=== PATIENT | female | born 1980 | race Caucasian/White ===

== ENCOUNTER 2019-05-19 18:28 | Inpatient (IN) | payer OTHER ==
[2019-05-19 19:16] VITALS: BMI 15.6
--- NOTE | 2019-05-19 20:35 | HP ---
COWS - Scale Resting Pulse: 1= [place] 81-100 Sweatin=Flushed/Facial Moisture Restless Observation: 1= Difficult to Sit Still Pupil Size: 0= Normal to Room Light Bone or Joint Aches: 0= None Runny Nose/ Eye Tearin= Nasal Congestion GI Upset > 30mins: 2= Nausea/Diarrhea Tremor Observation: 0= None Yawning Observation: 0= None Anxiety or Irritability: 2=Irritable/Anxious Goose Flesh Skin: 0=Smooth Skin COWS Score: 9 CIWA Score Nausea/Vomitin-Mild Nausea/No Vomiting Muscle Tremors: None Anxiety: 1-Mildly Anxious Agitation: 1-Slight > Activity Paroxysmal Sweats: 3 Orientation: 0-Oriented Tacttile Disturbances: 0-None (see black like tad poles) Auditory Disturbances: 0-None Visual Disturbances: 3-Moderate Sensitivity Headache: 3-Moderate CIWA-Ar Total Score: 12 - Admission Criteria OASAS Guidelines: Admission for Medically Managed Detox: Requires at least one of the followin. CIWA greater than 12 2. Seizures within the past 24 hours 3. Delirium tremens within the past 24 hours 4. Hallucinations within the past 24 hours 5. Acute intervention needed for co occurring medical disorder 6. Acute intervention needed for co occurring psychiatric disorder 7. Severe withdrawal that cannot be handled at a lower level of care (continued vomiting, continued diarrhea, abnormal vital signs) requiring intravenous medication and/or fluids 8. Admission [facility] Chief Complaint: C/O WITHDRAWAL SX'S Allergies/Adverse Reactions: Allergies Allergy/AdvReac Type Severity Reaction Status Date / Time No Known Allergies Allergy Verified 05/19/19 19:06 History of Present Illness: 39 Y.O. FEMALE WITH OPIOID AND ALCOHOL DEPENDENCE HERE FOR DETOX. SHE ALSO REPORTS CANNABIS AND COCAINE ABUSE. STATES SHE IN ON RX XANAX. LAST DETOX ABOUT 10 DAYS AGO AT [facility] WHERE SHE SIGNED OUT AFTER A DAY OR SO. 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 SHE REPORTS DAILY SUBSTANCE ABUSE LAST USE EARLIER TODAY DUE TO WITHDRAWAL SX'S. DENIES ANY CLEAN TIME IN THE PAST YEAR. DENIES HX/O SZ, DT'S, SI/HI/AVH +IVDU, +DRUG OVERDOSE. DOMICILED, UNEMPLOYED, DENIES LEGALS Exam Limitations: No Limitations - Ebola screening Have you traveled outside of the country in the last 21 days: No (N) Have you had contact with anyone from an Ebola affected area: No Do you have a fever: No - Review of Systems Constitutional: Chills, Loss of Appetite, Night Sweats, Changes in sleep, Unintentional Wgt. Loss EENT: reports: Dental Problems (NPOOR DENTITION) Respiratory: reports: Shortness of Breath Cardiac: reports: No Symptoms Reported GI: reports: Nausea, Poor Appetite, Poor Fluid Intake, Abdominal cramping : reports: No Symptoms Reported Musculoskeletal: reports: Back Pain Integumentary: reports: Flushing, Other (RIGHT HAND ABRASION) Neuro: reports: Headache Endocrine: reports: No Symptoms Reported Hematology: reports: No Symptoms Reported Psychiatric: reports: Orientated x3, Agitated, Anxious, Depressed (DENIES SI) Other Systems: Reviewed and Negative Patient History - Patient Medical History Hx Anemia: No Hx Asthma: No Hx Chronic Obstructive Pulmonary Disease (COPD): No Hx Cancer: No Hx Cardiac Disorders: No Hx Congestive Heart Failure: No Hx Hypertension: No Hx Hypercholesterolemia: No Hx Pacemaker: No HX Cerebrovascular Accident: No Hx Seizures: No Hx Dementia: No Hx Diabetes: No Hx Gastrointestinal Disorders: No Hx Liver Disease: No Hx Genitourinary Disorders: No Hx Sexually Transmitted Disorders: No Hx Renal Disease (ESRD): No Hx Thyroid Disease: No Hx Human Immunodeficiency Virus (HIV): No Hx Hepatitis C: No Hx Depression: Yes Hx Suicide Attempt: No Hx Bipolar Disorder: No Hx Schizophrenia: No Other Medical History: ANXIETY, INSOMNIA - Patient Surgical History Past Surgical History: No - PPD History Previous Implant?: Yes Documented Results: Negative w/o proof Implanted On Prior R Admission?: No PPD to be Administered?: Yes - Reproductive History Patient is a Female of Child Bearing Age (11 -55 yrs old): Yes LMP comment: "ITS BEEN A LONG TIME" ON CONTROL-IMPLANT TO LUE Patient : No ([facility] [place]) - Smoking Cessation Smoking history: Current every day smoker Have you smoked in the past 12 months: Yes Aproximately how many cigarettes per day: 6 Cigars Per Day: 0 Hx Chewing Tobacco Use: No Initiated information on smoking cessation: Yes 'Breaking Loose' booklet given: 05/19/19 - Substance & Tx. History Hx Alcohol Use: Yes Hx Substance Use: Yes Substance Use Type: Alcohol, Cocaine, Heroin, Marijuana, Opiates, Prescribed ( XANAX) Hx Substance Use Treatment: Yes ([facility]) - Substances abused Heroin Substance route: Injection Frequency: Daily Amount used: 5 to 10 bags Age of first use: 29 Date of last use: 05/19/19 Alcohol Substance route: Oral Frequency: Daily Amount used: 3 beers/ couple shots of rum and henessey Age of first use: 16 Date of last use: 05/18/19 Cocaine Substance route: Inhalation (AND SMOKE) Frequency: 3-6 times per week Amount used: 2 BAGS Age of first use: 20 Date of last use: 05/18/19 Family Disease History - Family Disease History Family Disease History: Diabetes: Father (ALCOHOLISM, [place]), Other: Father, Mother (HYPOTHYROIDISM) Admission Physical Exam [facility] - Vital Signs Vital Signs: Vital Signs - 24 hr 05/19/19 19:09 Temperature 97.9 F Pulse Rate 83 Respiratory 16 Rate Blood Pressure 106/77 - Physical General Appearance: Yes: Mild Distress, Cachetic, Irritable HEENTM: Yes: EOMI, Normocephalic, Normal Voice, EDIL, Pharynx Normal, Nasal Congestion Respiratory: Yes: Chest Non-Tender, Lungs Clear, Normal Breath Sounds, No Respiratory Distress, No Accessory Muscle Use Neck: Yes: No masses,lesions,Nodules, Supple, Trachea in good position Breast: Yes: Breast Exam Deferred Cardiology: Yes: Regular Rhythm, Regular Rate, S1, S2 Abdominal: Yes: Normal Bowel Sounds, Non Tender, Flat, Soft Genitourinary: Yes: Within Normal Limits Back: Yes: Normal Inspection Musculoskeletal: Yes: full range of Motion, Gait Steady Extremities: Yes: Normal Capillary Refill, Normal Range of Motion, Non-Tender, 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 (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) 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: Yes: Fully Oriented, Alert, Motor Strength 5/5, Depressed Affect Integumentary: Yes: Cold, Other (PILORECTION R HAND MIDDLE KNUCKLE WITH HEALING ABRASION WITH SOME RED BORDERS NOT HOT TO TOUCH-BACITRACIN) Lymphatic: Yes: Within Normal Limits - Diagnostic (1) Alcohol dependence with uncomplicated withdrawal Current Visit: Yes Status: Acute (2) Opioid dependence with withdrawal Current Visit: Yes Status: Acute (3) Cocaine abuse, uncomplicated Current Visit: Yes Status: Acute (4) Sedative, hypnotic or anxiolytic dependence, uncomplicated Current Visit: Yes Status: Acute (5) IVDU (intravenous drug user) Current Visit: Yes Status: Acute (6) At risk for dehydration due to poor fluid intake Current Visit: Yes Status: Acute (7) Depressed affect Current Visit: Yes Status: Acute Cleared for Admission S - Detox or Rehab [facility] Level of Care: Medically Managed Detox Regimen/Protocol: Methadone/Valium Claeared for Rehab Admission: No Breathalyzer - Breathalyzer Breathalyzer: 0 Urine Drug Screen - Test Device Lot number: [id number] Expiration date: 02/10/21 - Control Is test valid?: Yes - Results Drug screen NEGATIVE: No Urine drug screen results: THC-Marijuana, MANGO-Cocaine, FEN-Fentanyl, MOP-Opiates , OXY-Oxycodone, MTD-Methadone, BZO-Benzodiazepines Inpatient Rehab Admission - Rehab Decision to Admit Inpatient rehab admission?: No
[2019-05-19] MEDS ORDERED: MENTHOL/PHENOL 1 EACH UD MM PRN (20:44)
[2019-05-19] MEDS ORDERED: guaiFENesin 200 MG/10 ML 10 ML UNIT-DOSE CUPS PO PRN (20:44)
[2019-05-19] MEDS ORDERED: hydrOXYzine PAMOATE 25 MG CAPSULE (FP) PO PRN (20:44)
[2019-05-19] MEDS ORDERED: PROCHLORPERAZINE MALEATE 5 MG TABLET PO PRN (20:44)
[2019-05-19] MEDS ORDERED: P-EPHED 60MG/TRIPROLIDI 2.5MG TABLET PO PRN (20:44)
[2019-05-19] MEDS ORDERED: cloNIDine HCL 0.1 MG TABLET PO PRN ×2 (20:44→23:38)
[2019-05-19] MEDS ORDERED: METHOCARBAMOL 500 MG TABLET PO PRN (20:44)
[2019-05-19] MEDS ORDERED: BISMUTH SUBSALICYLATE 524 MG/30 ML UD PO PRN (20:44)
[2019-05-19] MEDS ORDERED: NICOTINE POLACRILEX 2 MG GUM BUC PRN (20:44)
[2019-05-19] MEDS ORDERED: MAG HYDROX/AL HYDROX/SIMETH 30 ML UNIT-DOSE CUP PO PRN (20:44)
[2019-05-19] MEDS ORDERED: IBUPROFEN 400 MG TABLET (FP) PO PRN (20:44)
[2019-05-19] MEDS ORDERED: MELATONIN 5 MG TABLETS PO PRN (20:44)
[2019-05-19] MEDS ORDERED: ONDANSETRON *ODT* 4 MG TABLET SL PRN (20:44)
[2019-05-19] MEDS ORDERED: METHADONE HCL 10 MG TABLET (FOR DETOX USE ONLY) PO ONE ×2 (20:44→23:38)
[2019-05-19] MEDS ORDERED: ACETAMINOPHEN 325 MG TABLET (FP) PO PRN ×2 (20:44)
[2019-05-19] MEDS ORDERED: MAGNESIUM HYDROX 2400MG/30ML ORAL SUSPENSION 30 ML CUP PO PRN (20:44)
[2019-05-19] MEDS ORDERED: diazePAM 5 MG TABLET PO PRN (20:44)
[2019-05-19] MEDS ORDERED: MAGNESIUM CITRATE 300 ML BOTTLE PO PRN (20:44)
[2019-05-19] MEDS ORDERED: BACITRACIN 15 GM TUBE TOPICAL OINTMENT TP SCH ×2 (21:30→21:31)
[2019-05-19] MEDS ORDERED: diazePAM 5 MG TABLET PO SCH (22:00)
[2019-05-19] MEDS: THIAMINE HCL 100 MG TABLET (FP) PO SCH (23:34)
[2019-05-19] MEDS ORDERED: NALOXONE HCL 0.4 MG/ML VIAL IM PRN (23:38)
[2019-05-19] MEDS: diazePAM 5 MG TABLET PO SCH (23:49)
[2019-05-20] MEDS: diazePAM 5 MG TABLET PO SCH ×3 (06:42→22:37)
[2019-05-20] MEDS ORDERED: METHADONE HCL 5 MG TABLET (FOR DETOX USE ONLY) ONE (09:33)
[2019-05-20] MEDS ORDERED: METHADONE HCL 10 MG TABLET (FOR DETOX USE ONLY) ONE (09:33)
[2019-05-20] MEDS ORDERED: METHADONE (DETOX) 20 MG, METHADONE (DETOX) 5 MG PO ONE ×2 (10:00)
[2019-05-20] MEDS ORDERED: PRENATAL VITAMINS W/ FOLIC ACID TABLET (FP) PO SCH (10:00)
[2019-05-20] MEDS ORDERED: NICOTINE 14 MG/24 HOURS TOPICAL PATCH TD SCH (10:00)
--- NOTE | 2019-05-20 11:17 | CONSULT ---
[facility] Psychiatric Consult - Data Date of interview: 05/20/19 Admission source: Outreach Identifying data: Ms Gant is a 39 years old single female, mother of a 9 years old daughter, unemployed with no source of income, living with a friend seeking detox treatment for alcohol, opioid and cocaine Substance Abuse History: Reports history of alcohol, opioid and cocaine use. Refer to addiction counselor's summary for further information Medical History: Unremarkable. Smokes 6 cigarettes daily Psychiatric History: Reports that her first psychiatric contact was in 2011 when she saw a private psychiatrist in the [place] for feeling anxious and depressed. She claims that she was diagnosed with Anxiety and started on Buspar , Alprazolam and Ambien. Reports that she has continued to receive outpatient psychiatric treatment since. Reports that she currently sees Dr Chatman, a private psychiatrist on [facility] in the [place] and she is prescribed Xanax 2 mg/tid, Zoloft 25 mg/day, and Ambien 10 mg/hs. Denies previous psychiatric hospitalization or suicidal attempt. At present, reports feeling anxious and sleeping poorly Physical/Sexual Abuse/Trauma History: Denies emotional, physical or sexual abuse as well as DV relationship. No service Additional Comment: Reports history of 2 previous arrests. Claims that she is currently facing a felony conviction Mental Status Exam - Mental Status Exam Alert and Oriented to: Time, Place, Person Cognitive Function: Fair Patient Appearance: Well Groomed Mood: Anxious Affect: Appropriate Patient Behavior: Cooperative Speech Pattern: Clear Voice Loudness: Normal Thought Process: Intact, Goal Oriented Hallucinations: Denies Suicidal Ideation: Denies Homicidal Ideation: Denies Insight/Judgement: Poor Sleep: Poorly Appetite: Poor Muscle strength/Tone: Normal Gait/Station: Normal Psychiatric Findings - Problem List ([place] 1, 2,3) (1) Anxiety disorder Current Visit: Yes Status: Chronic (2) Substance-induced anxiety disorder Current Visit: Yes Status: Acute (3) Substance-induced sleep disorder Current Visit: Yes Status: Acute (4) Alcohol dependence with uncomplicated withdrawal Current Visit: Yes Status: Acute (5) Opioid dependence with withdrawal Current Visit: Yes Status: Acute (6) Cocaine dependence, uncomplicated Current Visit: Yes Status: Acute (7) Nicotine dependence Current Visit: Yes Status: Acute - Initial Treatment Plan Initial Treatment Plan: 1) Continue Zoloft 25 mg po daily. 2) Start Belsonmra 10 mg po HS prn for insomnia. 3) Continue inpatient detoxification
[2019-05-20 11:20] LABS: ALBUMIN 3.1 g/dl (3.4-5.0); BILIRUBIN,TOTAL 0.6 mg/dL (0.2-1); BLOOD UREA NITROGEN 10.6 mg/dL (7-18); CALCIUM 8.7 mg/dL (8.5-10.1); CREATININE 0.8 mg/dL (0.55-1.3); TOT PROT 5.5 g/dl (6.4-8.2)
[2019-05-20] MEDS ORDERED: SERTRALINE HCL 25 MG TABLET (FP) PO SCH (11:30)
--- NOTE | 2019-05-20 11:34 | PN ---
[facility] CIWA - CIWA Score Nausea/Vomitin-Mild Nausea/No Vomiting Muscle Tremors: 3 Anxiety: 3 Agitation: 3 Paroxysmal Sweats: 3 Orientation: 0-Oriented Tacttile Disturbances: 0-None Auditory Disturbances: 0-None Visual Disturbances: 0-None Headache: 0-None Present CIWA-Ar Total Score: 13 BHS COWS - Scale Resting Pulse: 0= [place] 80 or Below Sweatin= Chills/Flushing Restless Observation: 1= Difficult to Sit Still Pupil Size: 0= Normal to Room Light Bone or Joint Aches: 2= Severe Diffuse Aches Runny Nose/ Eye Tearin= Runny Nose/Eyes GI Upset > 30mins: 2= Nausea/Diarrhea Tremor Observation of Outstretched Hands: 2= Slight Tremor Visible Yawning Observation: 0= None Anxiety or Irritability: 2=Irritable/Anxious Goose Flesh Skin: 0=Smooth Skin COWS Score: 12 S Progress Note (SOAP) Subjective: sweats shakes interrupted sleep body aches nausea headache anxiety Objective: 05/20/19 11:33 Vital Signs Temperature 97.7 F 05/20/19 10:02 Pulse Rate 68 05/20/19 10:02 Respiratory Rate 20 05/20/19 10:02 Blood Pressure 127/84 05/20/19 10:02 O2 Sat by Pulse Oximetry (%) Laboratory Tests 05/20/19 07:00 Sodium 141 Potassium 4.0 Chloride 107 Carbon Dioxide 31 Anion Gap 3 L BUN 10.6 Creatinine 0.8 Est GFR (CKD-EPI)AfAm 108.39 Est GFR (CKD-EPI)NonAf 93.52 Random Glucose 79 Calcium 8.7 Total Bilirubin 0.6 AST 11 L ALT 19 Alkaline Phosphatase 61 Total Protein 5.5 L Albumin 3.1 L rest of labs pending aaox3 ambulating no acute distress Assessment: 05/20/19 11:33 withdrawal sx Plan: continue detox increase fluids motrin/tylenol prn zofran prn
[2019-05-20 11:53] LABS: HEMOGLOBIN 11.4 GM/dL (10.7-15.3); MCH 30.5 pg (25.7-33.7); MCHC 33.6 g/dl (32.0-36.0); MEAN CELL VOLUME 90.7 fl (80-96); MEAN PLT VOLUME 9.6 fl (7.5-11.1); PLATELET COUNT 290 K/MM3 (134-434); RBC 3.74 M/mm3 (3.60-5.2); RDW 13.8 % (11.6-15.6); WHITE BLOOD COUNT 8.4 K/mm3 (4.0-10.0)
--- NOTE | 2019-05-20 13:34 | EKG ---
Test Reason : Blood Pressure : / mmHG Vent. Rate : 069 BPM Atrial Rate : 069 BPM P-R Int : 100 ms QRS Dur : 086 ms QT Int : 402 ms P-R-T Axes : 025 068 045 degrees QTc Int : 430 ms SINUS RHYTHM WITH SHORT NM OTHERWISE NORMAL ECG NO PREVIOUS ECGS AVAILABLE Confirmed by GARRETT TORRES, YAMILEX ([id number]) on 05/20/2019 1:33:58 PM Referred By: Lionel Massey Confirmed By:YAMILEX TUCKER MD
[2019-05-20 16:06] LABS: EPI CELLS 26.2 /HPF (0-5/HPF); HYALINE CASTS 20 /lpf (0-8); URINE APPEARANCE CLOUDY; URINE BILIRUBIN NEGATIVE (NEGATIVE); URINE COLOR YELLOW; URINE GLUCOSE (UA) NEGATIVE (NEGATIVE); URINE KETONE NEGATIVE (NEGATIVE); URINE LEUK ESTERASE TRACE (NEGATIVE); URINE NITRITE NEGATIVE (NEGATIVE); URINE PROTEIN NEGATIVE (NEGATIVE); URINE RBC 2 /hpf (0-4); URINE WBC 8 /hpf (0-5)
[2019-05-20 16:35] LABS: URINE CRYSTALS CALCIUM OXALATE /hpf
[2019-05-20] MEDS: diazePAM 5 MG TABLET PO PRN (19:06)
[2019-05-20] MEDS ORDERED: SUVOREXANT 10 MG TABLET PO PRN (22:00)
[2019-05-20] MEDS: THIAMINE HCL 100 MG TABLET (FP) PO SCH (22:37)
[2019-05-21] MEDS ORDERED: diazePAM 5 MG TABLET PO SCH ×2 (06:00)
[2019-05-21] MEDS: diazePAM 5 MG TABLET PO PRN (07:51)
[2019-05-21 08:18] VITALS: BP 116/89; PULSE 67; TEMP 97.7
--- NOTE | 2019-05-21 08:47 | PN ---
S Progress Note Note: pt was admitted in withdrawals, pt c/o withdrawals and aggressive symptomatic management however pt in spite of motivational counseling regarding the risk of relapse, seizures, OD, and or loss, pt chose to sign out AMA.
--- NOTE | 2019-05-21 09:31 | DS ---
[facility] Detox Discharge Summary Admission Date: 05/19/19 - History Present History: Alcohol Dependence, Opioid Dependence, Sedative Dependence - Physical Exam Results Vital Signs: Vital Signs Temperature 97.7 F 05/21/19 08:17 Pulse Rate 67 05/21/19 08:17 Respiratory Rate 16 05/21/19 08:17 Blood Pressure 116/89 05/21/19 08:17 O2 Sat by Pulse Oximetry (%) - Treatment Patient has Accepted a Rehab Referral to: pt refused rehab, referral - Medication Discharge Medications: Ambulatory Orders Zolpidem Tartrate [Ambien] 10 mg PO HS 05/19/19 - Diagnosis (1) Alcohol dependence with uncomplicated withdrawal Current Visit: Yes Status: Chronic (2) At risk for dehydration due to poor fluid intake Current Visit: Yes Status: Acute (3) Cocaine dependence, uncomplicated Current Visit: Yes Status: Chronic (4) Depressed affect Current Visit: Yes Status: Acute (5) IVDU (intravenous drug user) Current Visit: Yes Status: Chronic (6) Nicotine dependence Current Visit: Yes Status: Chronic Qualifiers: Nicotine product type: cigarettes Substance use status: uncomplicated Qualified Code(s): F17.210 - Nicotine dependence, cigarettes, uncomplicated (7) Opioid dependence with withdrawal Current Visit: Yes Status: Chronic (8) Sedative, hypnotic or anxiolytic dependence, uncomplicated Current Visit: Yes Status: Chronic (9) Substance-induced anxiety disorder Current Visit: Yes Status: Acute (10) Substance-induced sleep disorder Current Visit: Yes Status: Acute (11) Anxiety disorder Current Visit: Yes Status: Chronic - AMA Did Patient Leave Against Medical Advice: Yes
[2019-05-21] MEDS ORDERED: METHADONE HCL 10 MG TABLET (FOR DETOX USE ONLY) PO ONE ×2 (10:00)
[2019-05-22] MEDS ORDERED: diazePAM 5 MG TABLET PO ONE ×2 (06:00)
[2019-05-22] MEDS ORDERED: METHADONE (DETOX) 10 MG, METHADONE (DETOX) 5 MG PO ONE ×2 (10:00)
[2019-05-23] MEDS ORDERED: METHADONE HCL 10 MG TABLET (FOR DETOX USE ONLY) PO ONE ×2 (10:00)
[2019-05-24] MEDS ORDERED: METHADONE HCL 5 MG TABLET (FOR DETOX USE ONLY) PO ONE ×2 (06:00)
== END 2019-05-21 09:27 | disposition left against medical advice (07) | DRG 770 ==
LOC: YASAS 18:28 → Y6N 21:04
PROVIDERS: ADMIT Surgery; ATTEND Surgery
PROC: HZ2ZZZZ Detoxification Services for Substance Abuse Treatment (ICD-10-PCS; principal; 2019-05-19)
DX: F11.23 Opioid dependence with withdrawal (principal); F10.230 Alcohol dependence with withdrawal, uncomplicated; F13.230 Sedative, hypnotic or anxiolytic dependence with withdrawal, uncomplicated; F14.20 Cocaine dependence, uncomplicated; F17.210 Nicotine dependence, cigarettes, uncomplicated; F32.9 Major depressive disorder, single episode, unspecified; F19.280 Other psychoactive substance dependence with psychoactive substance-induced anxiety disorder; F19.282 Other psychoactive substance dependence with psychoactive substance-induced sleep disorder; F41.9 Anxiety disorder, unspecified; R63.8 Other symptoms and signs concerning food and fluid intake
CPT/HCPCS: 36415; 80053; 81003; 81025; 85027; 86480; 86593; 93005; 93010; J0735

== ENCOUNTER 2019-06-18 17:18 | Inpatient (IN) | payer OTHER ==
[2019-06-18 23:24] VITALS: BMI 16.2
--- NOTE | 2019-06-19 03:44 | HP ---
COWS - Scale Resting Pulse: 0= [place] 80 or Below Sweatin=Flushed/Facial Moisture Restless Observation: 0= Sits Still Pupil Size: 1= Pupils >than Normal Bone or Joint Aches: 4=Acute Joint/Muscle Pain Runny Nose/ Eye Tearin= Runny Nose/Eyes GI Upset > 30mins: 3= Vomiting/Diarrhea (vomiting x 1, diarrhea x 1) Tremor Observation: 4= Gross Tremor/Twitching Yawning Observation: 1= 1-2x During Session Anxiety or Irritability: 2=Irritable/Anxious Goose Flesh Skin: 0=Smooth Skin COWS Score: 19 CIWA Score Nausea/Vomitin Muscle Tremors: 3 Anxiety: 3 Agitation: 3 Paroxysmal Sweats: 2 Orientation: 0-Oriented Tacttile Disturbances: 0-None Auditory Disturbances: 0-None Visual Disturbances: 0-None Headache: 0-None Present CIWA-Ar Total Score: 13 - Admission Criteria OASAS Guidelines: Admission for Medically Managed Detox: Requires at least one of the followin. CIWA greater than 12 2. Seizures within the past 24 hours 3. Delirium tremens within the past 24 hours 4. Hallucinations within the past 24 hours 5. Acute intervention needed for co occurring medical disorder 6. Acute intervention needed for co occurring psychiatric disorder 7. Severe withdrawal that cannot be handled at a lower level of care (continued vomiting, continued diarrhea, abnormal vital signs) requiring intravenous medication and/or fluids 8. Admission [facility] Chief Complaint: Seeking admission to detox from Heroin and alcohol Allergies/Adverse Reactions: Allergies Allergy/AdvReac Type Severity Reaction Status Date / Time No Known Allergies Allergy Verified 06/18/19 23:15 History of Present Illness: 39 years old female with 10 years of heroin dependence is seeking admission to detox from heroin and alcohol. Patient has been in previous detox and reports 3 years of sobriety. She denies past medical history and denies suicidal suicidal ideation at this time Exam Limitations: No Limitations - Ebola screening Have you traveled outside of the country in the last 21 days: No (N) Have you had contact with anyone from an Ebola affected area: No Do you have a fever: No - Review of Systems Constitutional: Chills, Malaise, Night Sweats, Changes in sleep EENT: reports: Nose Congestion Respiratory: reports: No Symptoms reported Cardiac: reports: No Symptoms Reported GI: reports: Diarrhea, Poor Appetite, Poor Fluid Intake, Vomiting, Abdominal cramping : reports: No Symptoms Reported Musculoskeletal: reports: Back Pain, Joint Pain, Muscle Pain Integumentary: reports: Dryness, Flushing Neuro: reports: Tremors Endocrine: reports: No Symptoms Reported Hematology: reports: No Symptoms Reported Psychiatric: reports: Mood/Affect Appropiate, Anxious Other Systems: Reviewed and Negative Patient History - Patient Medical History Hx Anemia: No Hx Asthma: No Hx Chronic Obstructive Pulmonary Disease (COPD): No Hx Cancer: No Hx Cardiac Disorders: No Hx Congestive Heart Failure: No Hx Hypertension: No Hx Hypercholesterolemia: No Hx Pacemaker: No HX Cerebrovascular Accident: No Hx Seizures: No Hx Dementia: No Hx Diabetes: No Hx Gastrointestinal Disorders: No Hx Liver Disease: No Hx Genitourinary Disorders: No Hx Sexually Transmitted Disorders: No Hx Renal Disease (ESRD): No Hx Thyroid Disease: No Hx Human Immunodeficiency Virus (HIV): No Hx Hepatitis C: No Hx Depression: Yes (Alprazolam) Hx Suicide Attempt: No Hx Bipolar Disorder: No Hx Schizophrenia: No - Patient Surgical History Past Surgical History: No Hx Neurologic Surgery: No Hx Cataract Extraction: No Hx Cardiac Surgery: No Hx Lung Surgery: No Hx Breast Surgery: No Hx Breast Biopsy: No Hx Abdominal Surgery: No Hx Appendectomy: No Hx Cholecystectomy: No Hx Genitourinary Surgery: No Hx Section: No Hx Orthopedic Surgery: No Anesthesia Reaction: No - PPD History Previous Implant?: Yes Documented Results: Negative w/o proof Implanted On Prior [facility] Admission?: Yes PPD to be Administered?: Yes - Reproductive History Patient is a Female of Child Bearing Age (11 -55 yrs old): Yes LMP comment: IMPLANT 30 MONTHS AGO - Smoking Cessation Smoking history: Current every day smoker Have you smoked in the past 12 months: Yes Aproximately how many cigarettes per day: 10 Cigars Per Day: 0 Hx Chewing Tobacco Use: No Initiated information on smoking cessation: Yes 'Breaking Loose' booklet given: 06/19/19 - Substance & Tx. History Hx Alcohol Use: No Hx Substance Use: Yes Substance Use Type: Cocaine, Heroin, Marijuana, Opiates Hx Substance Use Treatment: Yes ([facility]) - Substances abused Heroin Substance route: Injection Frequency: Daily Amount used: 6 to 10 bags Age of first use: 29 Date of last use: 06/18/19 Alcohol Substance route: Oral Frequency: Daily Amount used: 5 dollar bottle of liqour/ 2 beers Age of first use: 16 Date of last use: 06/18/19 Cocaine Substance route: Inhalation Frequency: 3-6 times per week Amount used: 2 BAGS Age of first use: 20 Date of last use: 06/17/19 Family Disease History - Family Disease History Family Disease History: Diabetes: Father (ALCOHOLISM, [place]), Other: Father, Mother (HYPOTHYROIDISM) Admission Physical Exam [facility] - Vital Signs Vital Signs: Vital Signs - 24 hr 06/18/19 06/19/19 23:14 01:48 Temperature 96.7 F L 96.7 F L Pulse Rate 76 76 Respiratory 16 16 Rate Blood Pressure 125/85 125/85 - Physical General Appearance: Yes: Moderate Distress, Tremorous, Sweating Cleared for Admission [facility] - Detox or Rehab [facility] Level of Care: Medically Managed Detox Regimen/Protocol: Methadone/Librium Breathalyzer - Breathalyzer Breathalyzer: 0 Urine Drug Screen - Test Device Lot number: [id number] Expiration date: 02/11/21 - Control Is test valid?: Yes - Results Drug screen NEGATIVE: No Urine drug screen results: THC-Marijuana, MANGO-Cocaine, FEN-Fentanyl, MOP-Opiates , OXY-Oxycodone, BZO-Benzodiazepines Inpatient Rehab Admission - Rehab Decision to Admit Inpatient rehab admission?: No
[2019-06-19] MEDS ORDERED: NICOTINE POLACRILEX 2 MG GUM BUC PRN (04:01)
[2019-06-19] MEDS ORDERED: ACETAMINOPHEN 325 MG TABLET (FP) PO PRN ×2 (04:01)
[2019-06-19] MEDS ORDERED: chlordiazePOXIDE HCL 10 MG CAPSULE PO PRN (04:01)
[2019-06-19] MEDS ORDERED: MENTHOL/PHENOL 1 EACH UD MM PRN (04:01)
[2019-06-19] MEDS ORDERED: METHOCARBAMOL 500 MG TABLET PO PRN (04:01)
[2019-06-19] MEDS ORDERED: MELATONIN 5 MG TABLETS PO PRN (04:01)
[2019-06-19] MEDS ORDERED: cloNIDine HCL 0.1 MG TABLET PO PRN (04:01)
[2019-06-19] MEDS ORDERED: BISMUTH SUBSALICYLATE 524 MG/30 ML UD PO PRN (04:01)
[2019-06-19] MEDS ORDERED: METHADONE HCL 10 MG TABLET (FOR DETOX USE ONLY) PO ONE (04:01)
[2019-06-19] MEDS ORDERED: MAG HYDROX/AL HYDROX/SIMETH 30 ML UNIT-DOSE CUP PO PRN (04:01)
[2019-06-19] MEDS ORDERED: MAGNESIUM HYDROX 2400MG/30ML ORAL SUSPENSION 30 ML CUP PO PRN (04:01)
[2019-06-19] MEDS ORDERED: MAGNESIUM CITRATE 300 ML BOTTLE PO PRN (04:01)
[2019-06-19] MEDS ORDERED: IBUPROFEN 400 MG TABLET (FP) PO PRN (04:01)
[2019-06-19] MEDS: chlordiazePOXIDE HCL 25 MG CAPSULE PO SCH ×2 (04:30→13:04)
[2019-06-19] MEDS: PRENATAL VITAMINS W/ FOLIC ACID TABLET (FP) PO SCH (10:12)
[2019-06-19] MEDS: NICOTINE 14 MG/24 HOURS TOPICAL PATCH TD SCH (10:12)
--- NOTE | 2019-06-19 11:55 | EKG ---
Test Reason : Blood Pressure : / mmHG Vent. Rate : 065 BPM Atrial Rate : 065 BPM P-R Int : 102 ms QRS Dur : 076 ms QT Int : 396 ms P-R-T Axes : -18 068 054 degrees QTc Int : 411 ms SINUS RHYTHM WITH SHORT [place] WHEN COMPARED WITH ECG OF 19-MAY-2019 21:12, NO SIGNIFICANT CHANGE WAS FOUND Confirmed by HI ESTRADA MD ([id number]) on 06/19/2019 11:55:20 AM Referred By: Confirmed By:HI ESTRADA MD
--- NOTE | 2019-06-19 14:05 | PN ---
[facility] CIWA - CIWA Score Nausea/Vomitin Muscle Tremors: 2 Anxiety: 3 Agitation: 3 Paroxysmal Sweats: 1-Minimal Palms Moist Orientation: 0-Oriented Tacttile Disturbances: 1-Very Mild Itch/Numbness Auditory Disturbances: 0-None Visual Disturbances: 1-Very Mild Sensitivity Headache: 2-Mild CIWA-Ar Total Score: 15 BHS COWS - Scale Resting Pulse: 0= [place] 80 or Below Sweatin= Chills/Flushing Restless Observation: 1= Difficult to Sit Still Pupil Size: 1= Pupils >than Normal Bone or Joint Aches: 2= Severe Diffuse Aches Runny Nose/ Eye Tearin= Nasal Congestion GI Upset > 30mins: 2= Nausea/Diarrhea Tremor Observation of Outstretched Hands: 1= Tremor [place], Not Seen Yawning Observation: 1= 1-2x During Session Anxiety or Irritability: 2=Irritable/Anxious Goose Flesh Skin: 0=Smooth Skin COWS Score: 12 S Progress Note (SOAP) Subjective: alert,irritable,anxious,interrupted sleep,tremor,painin the body and back Objective: 06/19/19 14:03 Vital Signs Temperature 98.4 F 06/19/19 09:14 Pulse Rate 72 06/19/19 09:14 Respiratory Rate 18 06/19/19 09:14 Blood Pressure 136/90 06/19/19 09:14 O2 Sat by Pulse Oximetry (%) Assessment: 06/19/19 14:04 withdrawaL SYMPTOM Plan: continue detox regimen changed from methadone and librium to methadone and valium
[2019-06-19] MEDS: diazePAM 5 MG TABLET PO SCH ×2 (14:27→21:50)
[2019-06-19] MEDS: hydrOXYzine PAMOATE 25 MG CAPSULE (FP) PO PRN ×2 (14:27→22:31)
--- NOTE | 2019-06-19 16:50 | CONSULT ---
[facility] Psychiatric Consult - Data Date of interview: 06/19/19 Admission source: [facility] Identifying data: Readmission to [facility] for this 39 y/o female self -referred for detoxification (heroin, cannabis, cocaine/crack). Interviewed at [address] [place] [address]. Patient is single, a mother of one, domiciled, unemployed and deprived of any source of income. Substance Abuse History: Discussed with the patient in this session. [facility] report appreciated. Details as follows : Smoking history: Current every day smoker. Have you smoked in the past 12 months: Yes. Aproximately how many cigarettes per day: 10. Cigars Per Day: 0. Hx Chewing Tobacco Use: No. Initiated information on smoking cessation: Yes. 'Breaking Loose' booklet given: . - Substance & Tx. History. Hx Alcohol Use: No. Hx Substance Use: Yes. Substance Use Type: Cocaine, Heroin, Marijuana, Opiates. Hx Substance Use Treatment: Yes ([facility]). - Substances abused. Heroin. Substance route: Injection. Frequency: Daily. Amount used: 6 to 10 bags. Age of first use: 29. Date of last use: 06/18/19. Alcohol. Substance route: Oral. Frequency : Daily. Amount used: 5 dollar bottle of liqour/ 2 beers. Age of first use: 16. Date of last use: 06/18/19. Cocaine. Substance route: Inhalation. Frequency: 3-6 times per week. Amount used: 2 BAGS. Age of first use: 20. Date of last use: 06/17/19 Medical History: Patient denies medical problems. Psychiatric History: Patient has shaheed diagnosed with MDD + Anxiety Disorder since 2011 (by a private psychiatrist). No prior history of psychiatric hospitalizations. Ms Wang is currently under the care of Dr Chatman, a private psychiatrist in the [place]. She is prescribed a regimen of buspar, sertraline, alprazolam and zolpidem. Patient denies history of suicide attempts. Physical/Sexual Abuse/Trauma History: Patient denies history of abuse. Additional Comment: Urine drug screen results: THC-Marijuana, MANGO-Cocaine, FEN- Fentanyl, MOP-Opiates, OXY-Oxycodone, BZO-Benzodiazepines. Noted. Mental Status Exam - Mental Status Exam Alert and Oriented to: Time, Place, Person Cognitive Function: Good Patient Appearance: Well Groomed (thin frame, smalll stature) Mood: Withdrawn, Hopeful Affect: Appropriate, Normal Range Patient Behavior: Fatigued, Appropriate, Cooperative Speech Pattern: Clear, Appropriate Voice Loudness: Normal Thought Process: Intact, Goal Oriented Thought Disorder: Not Present Hallucinations: Denies Suicidal Ideation: Denies Homicidal Ideation: Denies Insight/Judgement: Poor Sleep: Well Appetite: Fair Gait/Station: Normal Psychiatric Findings - Problem List ([place] 1, 2,3) (1) Opioid dependence with withdrawal Current Visit: Yes Status: Acute (2) Sedative, hypnotic or anxiolytic dependence, uncomplicated Current Visit: Yes Status: Acute (3) Cannabis dependence Current Visit: Yes Status: Chronic (4) Cocaine dependence, uncomplicated Current Visit: Yes Status: Chronic (5) Nicotine dependence Current Visit: Yes Status: Chronic Qualifiers: Nicotine product type: cigarettes Substance use status: uncomplicated Qualified Code(s): F17.210 - Nicotine dependence, cigarettes, uncomplicated (6) Substance induced mood disorder Current Visit: Yes Status: Chronic (7) Anxiety disorder Current Visit: Yes Status: Chronic Comment: By history. (8) History of depression Current Visit: Yes Status: Chronic - Initial Treatment Plan Initial Treatment Plan: Psychoeducation. Sleep hygiene. Detoxification. NA meetings. Zoloft 50 mg po daily. Side effects/benefits discussed with patient. Ms Wang agrees to this plan of care. Gave verbal consent to MD. Valderrama.
[2019-06-19] MEDS: diazePAM 5 MG TABLET PO PRN ×2 (17:30→21:31)
[2019-06-19] MEDS ORDERED: THIAMINE HCL 100 MG TABLET (FP) PO SCH (22:00)
[2019-06-20] MEDS: diazePAM 5 MG TABLET PO PRN ×3 (01:29→11:52)
[2019-06-20] MEDS ORDERED: chlordiazePOXIDE 5 MG CAPSULE PO SCH (05:00)
[2019-06-20] MEDS: diazePAM 5 MG TABLET PO SCH (05:41)
[2019-06-20] MEDS ORDERED: METHADONE HCL 5 MG TABLET (FOR DETOX USE ONLY) ONE (08:53)
[2019-06-20] MEDS ORDERED: METHADONE HCL 10 MG TABLET (FOR DETOX USE ONLY) ONE (08:53)
[2019-06-20 09:40] VITALS: BP 108/73; PULSE 85; TEMP 97.3
[2019-06-20] MEDS ORDERED: METHADONE (DETOX) 20 MG, METHADONE (DETOX) 5 MG PO ONE (10:00)
[2019-06-20] MEDS ORDERED: SERTRALINE HCL 50 MG TABLET (FP) PO SCH (10:00)
[2019-06-20 10:25] LABS: HEMATOCRIT 42.5 % (32.4-45.2); HEMOGLOBIN 14.2 GM/dL (10.7-15.3); MCH 29.9 pg (25.7-33.7); MCHC 33.5 g/dl (32.0-36.0); MEAN CELL VOLUME 89.3 fl (80-96); MEAN PLT VOLUME 9.5 fl (7.5-11.1); PLATELET COUNT 396 K/MM3 (134-434); RBC 4.76 M/mm3 (3.60-5.2); RDW 14.3 % (11.6-15.6); WHITE BLOOD COUNT 8.8 K/mm3 (4.0-10.0)
[2019-06-20 10:28] LABS: ALBUMIN 4.2 g/dl (3.4-5.0); BILIRUBIN,TOTAL 0.6 mg/dL (0.2-1); BLOOD UREA NITROGEN 18.4 mg/dL (7-18); CALCIUM 10.4 mg/dL (8.5-10.1); CREATININE 0.8 mg/dL (0.55-1.3); POTASSIUM 4.5 mmol/L (3.5-5.1); TOT PROT 7.9 g/dl (6.4-8.2)
[2019-06-20] MEDS: PRENATAL VITAMINS W/ FOLIC ACID TABLET (FP) PO SCH (10:32)
[2019-06-20] MEDS: NICOTINE 14 MG/24 HOURS TOPICAL PATCH TD SCH (10:32)
--- NOTE | 2019-06-20 17:46 | DS ---
[facility] Detox Discharge Summary Admission Date: 06/19/19 Discharge Date: 06/20/19 - History Present History: Alcohol Dependence, Cannabis Dependence, Cocaine Dependence, Opioid Dependence Additional Comments: DESPITE EFFORTS BY PUPIL PERSONNEL WORKER AND BY NURSING STAFF TO ADDRESS PATIENT'S MEDICAL NEEDS / CONCERNS, PATIENT DOES NOT WISH TO REMAIN TO COMPLETE DETOX REGIMEN. RISKS OF LEAVING DETOX UNIT AGAINST MEDICAL ADVICE AND PRIOR TO COMPLETION OF DETOX REGIMEN EXPLAINED TO PATIENT. PATIENT ADVISED TO GO IMMEDIATELY TO NEAREST ER SHOULD ANY INTOLERABLE WITHDRAWAL / DETOX SYMPTOMS DEVELOP AT ANY TIME. PATIENT VERBALIZED UNDERSTANDING OF ALL INFORMATION / RECOMMENDATIONS PRESENTED TO HIM PRIOR TO DEPARTURE FROM DETOX UNIT. PATIENT LEFT DETOX UNIT IN STABLE MEDICAL CONDITION. Pertinent Past History: Depression, Nicotine Dependence, Anxiety Disorder. - Physical Exam Results Vital Signs: Vital Signs Temperature 97.3 F L 06/20/19 09:39 Pulse Rate 85 06/20/19 09:39 Respiratory Rate 16 06/20/19 09:39 Blood Pressure 108/73 06/20/19 09:39 O2 Sat by Pulse Oximetry (%) Pertinent Admission Physical Exam Findings: WITHDRAWAL SYMPTOMS. Laboratory Tests 06/20/19 06/20/19 06/20/19 08:00 08:00 08:00 WBC 8.8 RBC 4.76 Hgb 14.2 Hct 42.5 D MCV 89.3 MCH 29.9 MCHC 33.5 RDW 14.3 Plt Count 396 D MPV 9.5 Sodium 140 Potassium 4.5 Chloride 106 Carbon Dioxide 28 Anion Gap 6 L BUN 18.4 H Creatinine 0.8 Est GFR (CKD-EPI)AfAm 108.39 Est GFR (CKD-EPI)NonAf 93.52 Random Glucose 79 Calcium 10.4 H Total Bilirubin 0.6 AST 16 ALT 24 Alkaline Phosphatase 107 Total Protein 7.9 Albumin 4.2 RPR Titer Nonreactive LABS NOTED. - Medication Discharge Medications: Ambulatory Orders Sertraline HCl [Zoloft -] 50 mg PO DAILY 06/18/19 - Diagnosis (1) Opioid dependence with withdrawal Status: Acute (2) Sedative, hypnotic or anxiolytic dependence, uncomplicated Status: Acute (3) Anxiety disorder Status: Chronic Qualifiers: Anxiety disorder type: unspecified anxiety disorder Qualified Code(s): F41.9 - Anxiety disorder, unspecified (4) Cannabis dependence Status: Chronic (5) Cocaine dependence, uncomplicated Status: Chronic (6) History of depression Status: Chronic (7) Nicotine dependence Status: Chronic Qualifiers: Nicotine product type: cigarettes Substance use status: uncomplicated Qualified Code(s): F17.210 - Nicotine dependence, cigarettes, uncomplicated (8) Substance induced mood disorder Status: Chronic - AMA Did Patient Leave Against Medical Advice: Yes (PATIENT DID NOT WISH TO REMAIN TO COMPLETE DETOX REGIMEN.) [facility] CIWA - CIWA Score Nausea/Vomitin Muscle Tremors: None Anxiety: 3 Agitation: 2 Paroxysmal Sweats: 3 Orientation: 0-Oriented Tacttile Disturbances: 1-Very Mild Itch/Numbness Auditory Disturbances: 0-None Visual Disturbances: 0-None Headache: 0-None Present CIWA-Ar Total Score: 12 COWS - Scale Resting Pulse: 0= [place] 80 or Below Sweatin= Chills/Flushing Restless Observation: 1= Difficult to Sit Still Pupil Size: 0= Normal to Room Light Bone or Joint Aches: 2= Severe Diffuse Aches Runny Nose/ Eye Tearin= None GI Upset > 30mins: 2= Nausea/Diarrhea (vomiting x 1, diarrhea x 1) Tremor Observation: 0= None Yawning Observation: 1= 1-2x During Session Anxiety or Irritability: 2=Irritable/Anxious Goose Flesh Skin: 0=Smooth Skin COWS Score: 9
[2019-06-21] MEDS ORDERED: chlordiazePOXIDE HCL 10 MG CAPSULE PO PRN
[2019-06-21] MEDS ORDERED: chlordiazePOXIDE HCL 10 MG CAPSULE PO SCH (05:00)
[2019-06-21] MEDS ORDERED: diazePAM 5 MG TABLET PO SCH (06:00)
[2019-06-21] MEDS ORDERED: METHADONE HCL 10 MG TABLET (FOR DETOX USE ONLY) PO ONE (10:00)
[2019-06-22] MEDS ORDERED: chlordiazePOXIDE HCL 10 MG CAPSULE PO ONE (05:00)
[2019-06-22] MEDS ORDERED: diazePAM 5 MG TABLET PO ONE (06:00)
[2019-06-22] MEDS ORDERED: METHADONE (DETOX) 10 MG, METHADONE (DETOX) 5 MG PO ONE (10:00)
[2019-06-23] MEDS ORDERED: METHADONE HCL 10 MG TABLET (FOR DETOX USE ONLY) PO ONE (10:00)
[2019-06-24] MEDS ORDERED: METHADONE HCL 5 MG TABLET (FOR DETOX USE ONLY) PO ONE (06:00)
== END 2019-06-20 12:56 | disposition left against medical advice (07) | DRG 770 ==
LOC: YASAS 17:18 → Y3N 06-19 03:46
PROVIDERS: ADMIT Surgery; ATTEND Surgery
PROC: HZ2ZZZZ Detoxification Services for Substance Abuse Treatment (ICD-10-PCS; principal; 2019-06-19)
DX: F11.23 Opioid dependence with withdrawal (principal); F13.230 Sedative, hypnotic or anxiolytic dependence with withdrawal, uncomplicated; F14.20 Cocaine dependence, uncomplicated; F12.20 Cannabis dependence, uncomplicated; F17.210 Nicotine dependence, cigarettes, uncomplicated; F19.24 Other psychoactive substance dependence with psychoactive substance-induced mood disorder; F41.9 Anxiety disorder, unspecified
CPT/HCPCS: 36415; 80053; 85027; 86593; 93005; 93010; J0735

== ENCOUNTER 2019-10-05 13:15 | Inpatient (IN) | payer OTHER ==
[2019-10-05 14:58] VITALS: BMI 16.8
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
--- NOTE | 2019-10-05 15:49 | HP ---
COWS - Scale Resting Pulse: 1= [place] 81-100 Sweatin= Chills/Flushing Restless Observation: 1= Difficult to Sit Still Pupil Size: 2= Moderately Dilated Bone or Joint Aches: 1= Mild Discomfort Runny Nose/ Eye Tearin= Nasal Congestion GI Upset > 30mins: 0= None Tremor Observation: 1= Tremor [place], Not Seen Yawning Observation: 0= None Anxiety or Irritability: 1=Feels Anxious/Irritable Goose Flesh Skin: 0=Smooth Skin COWS Score: 9 CIWA Score Nausea/Vomitin-No Nausea/No Vomiting Muscle Tremors: 1-None Visible, but [place] Anxiety: 2 Agitation: 1-Slight > Activity Paroxysmal Sweats: 1-Minimal Palms Moist Orientation: 0-Oriented Tacttile Disturbances: 0-None Auditory Disturbances: 0-None Visual Disturbances: 0-None Headache: 1-Very Mild CIWA-Ar Total Score: 6 - Admission Criteria OASAS Guidelines: Admission for Medically Managed Detox: Requires at least one of the followin. CIWA greater than 12 2. Seizures within the past 24 hours 3. Delirium tremens within the past 24 hours 4. Hallucinations within the past 24 hours 5. Acute intervention needed for co occurring medical disorder 6. Acute intervention needed for co occurring psychiatric disorder 7. Severe withdrawal that cannot be handled at a lower level of care (continued vomiting, continued diarrhea, abnormal vital signs) requiring intravenous medication and/or fluids 8. Admitting History and Physical - Smoking History Smoking history: Current every day smoker Have you smoked in the past 12 months: Yes Aproximately how many cigarettes per day: 10 - Alcohol/Substance Use Hx Alcohol Use: No Admission [facility] Allergies/Adverse Reactions: Allergies Allergy/AdvReac Type Severity Reaction Status Date / Time No Known Allergies Allergy Verified 10/05/19 14:50 - Ebola screening Have you traveled outside of the country in the last 21 days: No Have you had contact with anyone from an Ebola affected area: No Do you have a fever: No Patient History - Patient Medical History Hx Anemia: No Hx Asthma: No Hx Chronic Obstructive Pulmonary Disease (COPD): No Hx Cancer: No Hx Cardiac Disorders: No Hx Congestive Heart Failure: No Hx Hypertension: No Hx Hypercholesterolemia: No Hx Pacemaker: No HX Cerebrovascular Accident: No Hx Seizures: No Hx Dementia: No Hx Diabetes: No Hx Gastrointestinal Disorders: No Hx Liver Disease: No Hx Genitourinary Disorders: No Hx Sexually Transmitted Disorders: No Hx Renal Disease (ESRD): No Hx Thyroid Disease: No Hx Human Immunodeficiency Virus (HIV): No Hx Hepatitis C: No Hx Depression: Yes (Alprazolam) Hx Suicide Attempt: No Hx Bipolar Disorder: No Hx Schizophrenia: No - Patient Surgical History Past Surgical History: No Hx Neurologic Surgery: No Hx Cataract Extraction: No Hx Cardiac Surgery: No Hx Lung Surgery: No Hx Breast Surgery: No Hx Breast Biopsy: No Hx Abdominal Surgery: No Hx Appendectomy: No Hx Cholecystectomy: No Hx Genitourinary Surgery: No Hx Section: No Hx Orthopedic Surgery: No Anesthesia Reaction: No - Smoking Cessation Smoking history: Current every day smoker Have you smoked in the past 12 months: Yes Aproximately how many cigarettes per day: 10 Cigars Per Day: 0 Hx Chewing Tobacco Use: No - Substances abused Heroin Substance route: Injection Frequency: Daily Amount used: 10 bags Age of first use: 27 Date of last use: 10/05/19 Alcohol Substance route: Oral Frequency: Daily Amount used: 2-3 12oz beers/day Age of first use: 17 Date of last use: 10/04/19 Cocaine Substance route: Inhalation Frequency: 3-6 times per week Amount used: 2 BAGS Age of first use: 20 Date of last use: 06/17/19 Crack Substance route: Injection Frequency: Daily Amount used: 10 bags Age of first use: 31 Date of last use: 10/05/19 Admission Physical Exam [facility] - Vital Signs Vital Signs: Vital Signs - 24 hr 10/05/19 14:53 Temperature 98.2 F Pulse Rate 96 H Respiratory 18 Rate Blood Pressure 131/85 Breathalyzer - Breathalyzer Breathalyzer: 0 Urine Drug Screen - Test Device Lot number: [id number] Expiration date: 05/13/21 - Control Is test valid?: Yes - Results Drug screen NEGATIVE: No Urine drug screen results: THC-Marijuana, MANGO-Cocaine, FEN-Fentanyl, MOP-Opiates , BZO-Benzodiazepines
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
[2019-10-05] MEDS ORDERED: IBUPROFEN 400 MG TABLET (FP) PO PRN (17:03)
[2019-10-05] MEDS ORDERED: NALOXONE HCL 0.4 MG/ML VIAL IM PRN (17:03)
[2019-10-05] MEDS ORDERED: MAGNESIUM HYDROX 2400MG/30ML ORAL SUSPENSION 30 ML CUP PO PRN (17:03)
[2019-10-05] MEDS ORDERED: MENTHOL/PHENOL 1 EACH UD MM PRN (17:03)
[2019-10-05] MEDS ORDERED: MAGNESIUM CITRATE 300 ML BOTTLE PO PRN (17:03)
[2019-10-05] MEDS ORDERED: MAG HYDROX/AL HYDROX/SIMETH 30 ML UNIT-DOSE CUP PO PRN (17:03)
[2019-10-05] MEDS ORDERED: METHOCARBAMOL 500 MG TABLET PO PRN (17:03)
[2019-10-05] MEDS ORDERED: MELATONIN 5 MG TABLETS PO PRN (17:03)
[2019-10-05] MEDS ORDERED: hydrOXYzine PAMOATE 25 MG CAPSULE (FP) PO PRN (17:03)
[2019-10-05] MEDS ORDERED: BISMUTH SUBSALICYLATE 524 MG/30 ML UD PO PRN (17:03)
[2019-10-05] MEDS ORDERED: cloNIDine HCL 0.1 MG TABLET PO PRN (17:03)
[2019-10-05] MEDS ORDERED: ACETAMINOPHEN 325 MG TABLET (FP) PO PRN ×2 (17:03)
[2019-10-05] MEDS ORDERED: METHADONE HCL 10 MG TABLET (FOR DETOX USE ONLY) PO ONE (17:30)
[2019-10-05] MEDS ORDERED: NICOTINE 21 MG/24 HOURS TOPICAL PATCH TD SCH (18:00)
[2019-10-05] MEDS: clonazePAM 0.5 MG TABLET PO PRN (18:06)
[2019-10-05] MEDS ORDERED: THIAMINE HCL 100 MG TABLET (FP) PO SCH (22:00)
[2019-10-06] MEDS: clonazePAM 0.5 MG TABLET PO PRN ×2 (01:18→07:31)
[2019-10-06 06:29] VITALS: BP 90/52; PULSE 72; TEMP 97.7
--- NOTE | 2019-10-06 08:29 | PN ---
[facility] Progress Note Note: pt came up to the nurses station to state she wants to leave. Pt states she wants to go home to [place] and be with family. Pt was advised to stay to complete detox and give detox a chance she could be at risk of relapse, seizure , OD, and or loss, pt chose to sign out AMA.
[2019-10-06] MEDS ORDERED: METHADONE (DETOX) 20 MG, METHADONE (DETOX) 5 MG PO ONE (10:00)
[2019-10-06] MEDS ORDERED: PRENATAL VITAMINS W/ FOLIC ACID TABLET (FP) PO SCH (10:00)
[2019-10-06 10:23] LABS: HEMATOCRIT 36.1 % (32.4-45.2); HEMOGLOBIN 11.8 GM/dL (10.7-15.3); MCH 30.5 pg (25.7-33.7); MCHC 32.8 g/dl (32.0-36.0); MEAN CELL VOLUME 92.8 fl (80-96); MEAN PLT VOLUME 9.4 fl (7.5-11.1); PLATELET COUNT 131 K/MM3 (134-434); RBC 3.89 M/mm3 (3.60-5.2); RDW 14.7 % (11.6-15.6); WHITE BLOOD COUNT 5.6 K/mm3 (4.0-10.0)
[2019-10-06 11:41] LABS: ALBUMIN 3.2 g/dl (3.4-5.0); BILIRUBIN,TOTAL 0.5 mg/dL (0.2-1); BLOOD UREA NITROGEN 13.5 mg/dL (7-18); CALCIUM 8.7 mg/dL (8.5-10.1); CREATININE 0.6 mg/dL (0.55-1.3); POTASSIUM 4.8 mmol/L (3.5-5.1); TOT PROT 6.3 g/dl (6.4-8.2)
[2019-10-07] MEDS ORDERED: METHADONE HCL 10 MG TABLET (FOR DETOX USE ONLY) PO ONE (10:00)
[2019-10-08] MEDS ORDERED: METHADONE (DETOX) 10 MG, METHADONE (DETOX) 5 MG PO ONE (10:00)
[2019-10-09] MEDS ORDERED: METHADONE HCL 10 MG TABLET (FOR DETOX USE ONLY) PO ONE (10:00)
[2019-10-10] MEDS ORDERED: METHADONE HCL 5 MG TABLET (FOR DETOX USE ONLY) PO ONE (06:00)
== END 2019-10-06 08:52 | disposition left against medical advice (07) | DRG 770 ==
LOC: YASAS 13:15 → Y6N 17:22
PROVIDERS: ADMIT Allergy & Immunology; ATTEND Allergy & Immunology
PROC: HZ2ZZZZ Detoxification Services for Substance Abuse Treatment (ICD-10-PCS; principal; 2019-10-05)
DX: F14.20 Cocaine dependence, uncomplicated (principal); F17.210 Nicotine dependence, cigarettes, uncomplicated; F19.280 Other psychoactive substance dependence with psychoactive substance-induced anxiety disorder
CPT/HCPCS: 36415; 80053; 81025; 85027; 86593

== ENCOUNTER 2019-11-28 23:49 | Inpatient (IN) | payer OTHER ==
--- NOTE | 2019-11-29 00:35 | HP ---
COWS - Scale Resting Pulse: 2= OR 101-120 Sweatin=Flushed/Facial Moisture Restless Observation: 1= Difficult to Sit Still Pupil Size: 1= Pupils >than Normal Bone or Joint Aches: 2= Severe Diffuse Aches Runny Nose/ Eye Tearin= Nasal Congestion GI Upset > 30mins: 2= Nausea/Diarrhea Tremor Observation: 2= Slight Tremor Visible Yawning Observation: 0= None Anxiety or Irritability: 1=Feels Anxious/Irritable Goose Flesh Skin: 0=Smooth Skin COWS Score: 14 CIWA Score - Admission Criteria OASAS Guidelines: Admission for Medically Managed Detox: Requires at least one of the followin. CIWA greater than 12 2. Seizures within the past 24 hours 3. Delirium tremens within the past 24 hours 4. Hallucinations within the past 24 hours 5. Acute intervention needed for co occurring medical disorder 6. Acute intervention needed for co occurring psychiatric disorder 7. Severe withdrawal that cannot be handled at a lower level of care (continued vomiting, continued diarrhea, abnormal vital signs) requiring intravenous medication and/or fluids 8. Admitting History and Physical - Past Medical History Psych: Yes: Addictions - Past Surgical History Past Surgical History: Yes: None - Smoking History Smoking history: Current every day smoker Have you smoked in the past 12 months: Yes Aproximately how many cigarettes per day: 10 - Alcohol/Substance Use Hx Alcohol Use: No Admission ROS S - HPI Chief Complaint: DEPENDENT ON HEROIN, CRACK AND MARIJUANA Allergies/Adverse Reactions: Allergies Allergy/AdvReac Type Severity Reaction Status Date / Time No Known Allergies Allergy Verified 10/05/19 14:50 History of Present Illness: THE PT. IS REQUESTING ADMISSION TO THE DETOX UNIT AND CAME FOR H AND PE Exam Limitations: No Limitations - Ebola screening Have you traveled outside of the country in the last 21 days: No Have you had contact with anyone from an Ebola affected area: No Have you been sick,other than usual withdrawal symptoms: No Do you have a fever: No - Review of Systems Constitutional: See HPI, Loss of Appetite, Malaise, Unintentional Wgt. Loss EENT: reports: See HPI Respiratory: reports: See HPI Cardiac: reports: See HPI GI: reports: See HPI, Nausea, Poor Appetite, Abdominal cramping : reports: No Symptoms Reported, See HPI Musculoskeletal: reports: See HPI, Muscle Pain, Muscle Weakness Integumentary: reports: See HPI, Flushing Neuro: reports: See HPI, Headache, Tremors, Weakness Endocrine: reports: See HPI Hematology: reports: See HPI Psychiatric: reports: Judgement Intact, Orientated x3, Anxious, Depressed Patient History - Patient Medical History Hx Anemia: No Hx Asthma: No Hx Chronic Obstructive Pulmonary Disease (COPD): No Hx Cancer: No Hx Cardiac Disorders: No Hx Congestive Heart Failure: No Hx Hypertension: No Hx Hypercholesterolemia: No Hx Pacemaker: No HX Cerebrovascular Accident: No Hx Seizures: No Hx Dementia: No Hx Diabetes: No Hx Gastrointestinal Disorders: No Hx Liver Disease: No Hx Genitourinary Disorders: No Hx Sexually Transmitted Disorders: No Hx Renal Disease (ESRD): No Hx Thyroid Disease: No Hx Human Immunodeficiency Virus (HIV): No Hx Hepatitis C: Yes (DIAGNOSED 1 WK AGO) Hx Depression: Yes (AND ANIXETY) Hx Suicide Attempt: No Hx Bipolar Disorder: No Hx Schizophrenia: No - Patient Surgical History Past Surgical History: No Hx Neurologic Surgery: No Hx Cataract Extraction: No Hx Cardiac Surgery: No Hx Lung Surgery: No Hx Breast Surgery: No Hx Breast Biopsy: No Hx Abdominal Surgery: No Hx Appendectomy: No Hx Cholecystectomy: No Hx Genitourinary Surgery: No Hx Section: No Hx Orthopedic Surgery: No Anesthesia Reaction: No - Reproductive History Patient is a Female of Child Bearing Age (11 -55 yrs old): Yes LMP comment: 3 YRS. AGO Patient : No - Smoking Cessation Smoking history: Current every day smoker Have you smoked in the past 12 months: Yes Aproximately how many cigarettes per day: 10 Cigars Per Day: 0 Hx Chewing Tobacco Use: No Initiated information on smoking cessation: Yes 'Breaking Loose' booklet given: 11/29/19 - Substance & Tx. History Hx Alcohol Use: No Hx Substance Use: Yes Substance Use Type: Cocaine, Heroin, Marijuana, Prescribed, Tranquilizers Hx Substance Use Treatment: Yes - Substances abused Heroin Substance route: Injection Frequency: Daily Amount used: 10-15b/D Age of first use: 29 Date of last use: 11/28/19 Crack Substance route: Injection Frequency: Daily Amount used: 10-15 B/D Age of first use: 26 Date of last use: 11/28/19 Marijuana/Hashish Substance route: Smoking Frequency: 1-2 times per week Amount used: $10/ONCE A WK Age of first use: 17 Date of last use: 11/27/19 Alprazolam (Xanax) Substance route: Oral Frequency: Daily Amount used: 2 MGS. X 3/D - PRESCRIBED Age of first use: 27 Date of last use: 11/28/19 Admission Physical Exam [facility] - Physical General Appearance: Yes: No Apparent Distress, Appropriately Dressed, Thin, Tremorous, Anxious HEENTM: Yes: Hearing grossly Normal, Normocephalic, Normal Voice, EDIL, Pharynx Normal Respiratory: Yes: Chest Non-Tender, Lungs Clear, Normal Breath Sounds, No Respiratory Distress, No Accessory Muscle Use Neck: Yes: No masses,lesions,Nodules, Supple, Trachea in good position Breast: Yes: Breast Exam Deferred, Axillae without masses Cardiology: Yes: Regular Rhythm, S1, S2, Tachycardia Abdominal: Yes: Normal Bowel Sounds, Non Tender, Flat, Soft Back: Yes: Normal Inspection Musculoskeletal: Yes: full range of Motion, Gait Steady, Pelvis Stable, Muscle Pain, Muscle weakness Extremities: Yes: Normal Capillary Refill, Normal Range of Motion, Non-Tender, Tremors 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: 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: 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, Fully Oriented, Alert, Motor Strength 5/5, Normal Response, Depressed Affect Integumentary: Yes: Normal Color, Warm, Track [place] Lymphatic: Yes: Within Normal Limits - Addiitonal Findings: MULTIPLE NEEDLE TRACKS ON THE EXTREMITIES AND NECK NOTED - Diagnostic (1) Heroin dependence Current Visit: Yes Status: Chronic (2) Hepatitis C Current Visit: Yes Status: Chronic Qualifiers: Viral hepatitis chronicity: unspecified (3) Anxiety and depression Current Visit: Yes Status: Chronic (4) Cannabis dependence Current Visit: No Status: Chronic (5) Cocaine dependence, uncomplicated Current Visit: No Status: Chronic (6) Nicotine dependence Current Visit: No Status: Chronic Qualifiers: Nicotine product type: cigarettes Substance use status: uncomplicated Qualified Code(s): F17.210 - Nicotine dependence, cigarettes, uncomplicated Cleared for Admission [facility] - Detox or Rehab [facility] Level of Care: Medically Supervised Detox Regimen/Protocol: Methadone/Valium Breathalyzer - Breathalyzer Breathalyzer: 0 Urine Drug Screen - Test Device Lot number: [id number] Expiration date: 11/30/21 - Control Is test valid?: Yes - Results Drug screen NEGATIVE: No Urine drug screen results: THC-Marijuana, MANGO-Cocaine, MET-Methamphetamine, FEN- Fentanyl, MOP-Opiates, BZO-Benzodiazepines Inpatient Rehab Admission - Rehab Decision to Admit Inpatient rehab admission?: No
[2019-11-29] MEDS ORDERED: IBUPROFEN 400 MG TABLET (FP) PO PRN (00:47)
[2019-11-29] MEDS ORDERED: MAGNESIUM HYDROX 2400MG/30ML ORAL SUSPENSION 30 ML CUP PO PRN (00:47)
[2019-11-29] MEDS ORDERED: MAGNESIUM CITRATE 300 ML BOTTLE PO PRN (00:47)
[2019-11-29] MEDS ORDERED: NICOTINE POLACRILEX 2 MG GUM BUC PRN (00:47)
[2019-11-29] MEDS ORDERED: MAG HYDROX/AL HYDROX/SIMETH 30 ML UNIT-DOSE CUP PO PRN (00:47)
[2019-11-29] MEDS ORDERED: cloNIDine HCL 0.1 MG TABLET PO PRN (00:47)
[2019-11-29] MEDS ORDERED: ACETAMINOPHEN 325 MG TABLET (FP) PO PRN ×2 (00:47)
[2019-11-29] MEDS ORDERED: BISMUTH SUBSALICYLATE 524 MG/30 ML UD PO PRN (00:47)
[2019-11-29] MEDS ORDERED: MELATONIN 5 MG TABLETS PO PRN (00:47)
[2019-11-29] MEDS ORDERED: MENTHOL/PHENOL 1 EACH UD MM PRN (00:47)
[2019-11-29] MEDS ORDERED: hydrOXYzine PAMOATE 25 MG CAPSULE (FP) PO PRN (00:47)
[2019-11-29] MEDS ORDERED: METHOCARBAMOL 500 MG TABLET PO PRN (00:47)
[2019-11-29] MEDS ORDERED: diazePAM 5 MG TABLET PO ONE (03:15)
[2019-11-29] MEDS ORDERED: METHADONE HCL 10 MG TABLET (FOR DETOX USE ONLY) PO ONE ×2 (03:30→06:00)
[2019-11-29] MEDS: diazePAM 5 MG TABLET PO SCH ×3 (06:25→22:07)
[2019-11-29] MEDS: NICOTINE 14 MG/24 HOURS TOPICAL PATCH TD SCH (10:18)
[2019-11-29] MEDS: PRENATAL VITAMINS W/ FOLIC ACID TABLET (FP) PO SCH (10:18)
--- NOTE | 2019-11-29 12:29 | CONSULT ---
[facility] Psychiatric Consult - Data Date of interview: 11/29/19 Admission source: [facility] Identifying data: Patient is a 39 year old single female, mother of one, unemployed, and currently homeless. This is one of multiple admissions for patient. Patient admitted to for cannabis, cocaine, and sedative dependence. Substance Abuse History: Smoking Cessation. Smoking history: Current every day smoker. Have you smoked in the past 12 months: Yes. Aproximately how many cigarettes per day: 10. Cigars Per Day: 0. Hx Chewing Tobacco Use: No. Initiated information on smoking cessation: Yes. 'Breaking Loose' booklet given : 11/29/19. - Substance & Tx. History. Hx Alcohol Use: No. Hx Substance Use: Yes. Substance Use Type: Cocaine, Heroin, Marijuana, Prescribed, Tranquilizers. Hx Substance Use Treatment: Yes. - Substances abused. Heroin. Substance route: Injection. Frequency: Daily. Amount used: 10-15b/D. Age of first use: 29. Date of last use: 11/28/19. Crack. Substance route : Injection. Frequency: Daily. Amount used: 10-15 B/D. Age of first use: 26. Date of last use: 11/28/19. Marijuana/Hashish. Substance route: Smoking. Frequency: 1-2 times per week. Amount used: $10/ONCE A WK. Age of first use : 17. Date of last use: 11/27/19. Alprazolam (Xanax). Substance route: Oral. Frequency: Daily. Amount used: 2 MGS. X 3/D - PRESCRIBED. Age of first use: 27. Date of last use: 11/28/19 Medical History: Hep C Psychiatric History: Patient denies history of psychiatric hospitalization and suicide attempt. Patient with difficulty remaining awake throughout interview. States that she is currently under the care of Dr. Chatman, a private psychiatrist in the [place] [facility] and is prescribed ambien + xanax. Diagnosis of anxiety disorder. At present patient reports difficulty sleeping last night. Physical/Sexual Abuse/Trauma History: denies. Mental Status Exam - Mental Status Exam Alert and Oriented to: Time, Place, Person Cognitive Function: Good Patient Appearance: Well Groomed Mood: Withdrawn Affect: Mood Congruent Patient Behavior: Sedated, Fatigued Speech Pattern: Delayed Voice Loudness: Mildly Soft/Quiet Thought Process: Goal Oriented Thought Disorder: Not Present Hallucinations: Denies Suicidal Ideation: Denies Homicidal Ideation: Denies Insight/Judgement: Poor Sleep: Poorly Appetite: Fair Muscle strength/Tone: Normal Gait/Station: Normal Psychiatric Findings - Problem List ([place] 1, 2,3) (1) Heroin dependence Status: Chronic (2) Opioid dependence with withdrawal Status: Acute (3) Sedative, hypnotic or anxiolytic dependence, uncomplicated Status: Acute (4) Substance-induced sleep disorder Status: Acute (5) Cannabis dependence Status: Chronic (6) Cocaine dependence, uncomplicated Status: Chronic - Initial Treatment Plan Initial Treatment Plan: Psychoeducation provided. Rehab in progress. Will order Belsomra 5mg HS PRN. Benefits and side effects discussed. Verbal consent given.
--- NOTE | 2019-11-29 14:08 | PN ---
[facility] Progress Note Note: Patient admitted to detox for opiod dependence. ROS: mild nausea, chills, sweating and sleep disturbance PE alert and oriented x 3 skin warm, +facial flushing appears thin, tired resting in bed ext full rom, no visible edema A/P opiod withdrawal sx continue detox
[2019-11-29] MEDS: THIAMINE HCL 100 MG TABLET (FP) PO SCH (22:07)
[2019-11-29] MEDS: SUVOREXANT 5 MG TABLET PO PRN (22:09)
[2019-11-30] MEDS ORDERED: METHADONE HCL 10 MG TABLET (FOR DETOX USE ONLY) ONE (05:04)
[2019-11-30] MEDS ORDERED: METHADONE HCL 5 MG TABLET (FOR DETOX USE ONLY) ONE (05:04)
[2019-11-30] MEDS: diazePAM 5 MG TABLET PO SCH ×2 (05:46→17:48)
[2019-11-30] MEDS ORDERED: METHADONE (DETOX) 20 MG, METHADONE (DETOX) 5 MG PO ONE (06:00)
[2019-11-30 10:16] LABS: ALBUMIN 3.1 g/dl (3.4-5.0); BILIRUBIN,TOTAL 0.4 mg/dL (0.2-1); BLOOD UREA NITROGEN 15.4 mg/dL (7-18); CALCIUM 9.2 mg/dL (8.5-10.1); CREATININE 0.8 mg/dL (0.55-1.3); POTASSIUM 4.4 mmol/L (3.5-5.1); TOT PROT 6.2 g/dl (6.4-8.2)
[2019-11-30 10:23] LABS: HEMOGLOBIN 12.3 GM/dL (10.7-15.3); MCH 30.2 pg (25.7-33.7); MCHC 33.3 g/dl (32.0-36.0); MEAN CELL VOLUME 90.8 fl (80-96); MEAN PLT VOLUME 8.6 fl (7.5-11.1); PLATELET COUNT 337 K/MM3 (134-434); RBC 4.08 M/mm3 (3.60-5.2); RDW 14.3 % (11.6-15.6); WHITE BLOOD COUNT 6.8 K/mm3 (4.0-10.0)
[2019-11-30] MEDS: PRENATAL VITAMINS W/ FOLIC ACID TABLET (FP) PO SCH (10:31)
[2019-11-30] MEDS: NICOTINE 14 MG/24 HOURS TOPICAL PATCH TD SCH (10:31)
--- NOTE | 2019-11-30 14:44 | PN ---
S CIWA - CIWA Score Nausea/Vomitin Muscle Tremors: 2 Anxiety: 2 Agitation: 2 Paroxysmal Sweats: No Perspiration Orientation: 0-Oriented Tacttile Disturbances: 1-Very Mild Itch/Numbness Auditory Disturbances: 0-None Visual Disturbances: 0-None Headache: 1-Very Mild CIWA-Ar Total Score: 10 [facility] COWS - Scale Resting Pulse: 1= [place] 81-100 Sweatin= No chills or Flushing Restless Observation: 1= Difficult to Sit Still Pupil Size: 1= Pupils >than Normal Bone or Joint Aches: 1= Mild Discomfort Runny Nose/ Eye Tearin= Runny Nose/Eyes GI Upset > 30mins: 1= Stomach Cramp Tremor Observation of Outstretched Hands: 2= Slight Tremor Visible Yawning Observation: 1= 1-2x During Session Anxiety or Irritability: 2=Irritable/Anxious Goose Flesh Skin: 0=Smooth Skin COWS Score: 12 S Progress Note (SOAP) Subjective: alert,irritable,anxious,interrupted sleep,pain in the body Objective: 11/30/19 14:43 Vital Signs Temperature 97.9 F 11/30/19 14:37 Pulse Rate 98 H 11/30/19 14:37 Respiratory Rate 18 11/30/19 14:37 Blood Pressure 105/64 11/30/19 14:37 O2 Sat by Pulse Oximetry (%) Laboratory Last Values WBC 6.8 K/mm3 (4.0-10.0) 11/30/19 07:30 RBC 4.08 M/mm3 (3.60-5.2) 11/30/19 07:30 Hgb 12.3 GM/dL (10.7-15.3) 11/30/19 07:30 Hct 37.0 % (32.4-45.2) 11/30/19 07:30 MCV 90.8 fl (80-96) 11/30/19 07:30 MCH 30.2 pg (25.7-33.7) 11/30/19 07:30 MCHC 33.3 g/dl (32.0-36.0) 11/30/19 07:30 RDW 14.3 % (11.6-15.6) 11/30/19 07:30 Plt Count 337 K/MM3 (134-434) D 11/30/19 07:30 MPV 8.6 fl (7.5-11.1) 11/30/19 07:30 Sodium 139 mmol/L (136-145) 11/30/19 07:30 Potassium 4.4 mmol/L (3.5-5.1) 11/30/19 07:30 Chloride 105 mmol/L (98-107) 11/30/19 07:30 Carbon Dioxide 29 mmol/L (21-32) 11/30/19 07:30 Anion Gap 5 MMOL/L (8-16) L 11/30/19 07:30 BUN 15.4 mg/dL (7-18) 11/30/19 07:30 Creatinine 0.8 mg/dL (0.55-1.3) 11/30/19 07:30 Est GFR (CKD-EPI)AfAm 108.39 11/30/19 07:30 Est GFR (CKD-EPI)NonAf 93.52 11/30/19 07:30 Random Glucose 92 mg/dL (74-106) 11/30/19 07:30 Calcium 9.2 mg/dL (8.5-10.1) 11/30/19 07:30 Total Bilirubin 0.4 mg/dL (0.2-1) 11/30/19 07:30 AST 118 U/L (15-37) H 11/30/19 07:30 ALT 160 U/L (13-61) H 11/30/19 07:30 Alkaline Phosphatase 106 U/L (45-117) 11/30/19 07:30 Total Protein 6.2 g/dl (6.4-8.2) L 11/30/19 07:30 Albumin 3.1 g/dl (3.4-5.0) L 11/30/19 07:30 POC Urine HCG, Qual Negative 11/29/19 00:33 RPR Titer Nonreactive (NONREACTIVE) 11/30/19 07:30 Assessment: 11/30/19 14:43 withdrawal symptom Plan: continue detox methadone and valium regimen
[2019-11-30] MEDS ORDERED: NICOTINE 21 MG/24 HOURS TOPICAL PATCH TD SCH (14:45)
[2019-11-30] MEDS: diazePAM 5 MG TABLET PO PRN ×2 (16:00→20:04)
[2019-11-30] MEDS: SUVOREXANT 5 MG TABLET PO PRN (21:33)
[2019-11-30] MEDS: THIAMINE HCL 100 MG TABLET (FP) PO SCH (21:33)
[2019-11-30] MEDS ORDERED: hydrOXYzine PAMOATE 25 MG CAPSULE (FP) PO ONE (22:23)
--- NOTE | 2019-11-30 22:23 | PN ---
[facility] Progress Note Note: Patient states having withdrawal symptoms and none of the medication is helping her. Patient states uses too many opiates and is on prescribed Xanax. Patient took Belsomra and valium and is now requesting to leave AMA. Explained that based on her recent receipt of medications, she will not be able to leave until after 6 am. Vital Signs - 24 hr 11/30/19 11/30/19 11/30/19 00:40 03:42 05:00 Temperature 97.9 F Pulse Rate 52 L Respiratory 18 18 17 Rate Blood Pressure 106/52 L 11/30/19 11/30/19 11/30/19 06:31 09:37 14:37 Temperature 98.1 F 97.9 F Pulse Rate 90 98 H Respiratory 18 18 18 Rate Blood Pressure 108/66 105/64 Plan: Vistaril 75 mg PO now. Patient to lay in bed after medication. Will re-evaluate patient in a.m. if wants to leave. Discussed w/ patient her needs and encouraged to consider a MMTP which may be a better option to treat her opioid use disorder.
[2019-12-01] MEDS ORDERED: METHADONE HCL 10 MG TABLET (FOR DETOX USE ONLY) PO ONE (06:00)
[2019-12-01] MEDS ORDERED: diazePAM 5 MG TABLET PO ONE (06:00)
[2019-12-01 08:08] VITALS: BP 111/60; PULSE 89; TEMP 97.5
[2019-12-01] MEDS ORDERED: NALOXONE (NARCAN) HCL 4 MG/0.1 ML SPRAY NS PRN (09:35)
--- NOTE | 2019-12-01 09:35 | DS ---
[facility] Detox Discharge Summary Admission Date: 11/29/19 Discharge Date: 12/01/19 - History Present History: Opioid Dependence, Sedative Dependence Pertinent Past History: Pt admitted 2 days ago for opioid detox. Pt also uses xanax. Pt states she wants to leave today. d/w pt at [facility] re MAT methadone- pt was in [facility] program last year. I contacted them and they are willing to restart pt on MAT methadone. 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 d/w pt use of narcan as needed. increased Liver enzymes- pt states she has HCV and will f/u with [facility] for treatment pt is cachetic, appears anxious- d/w pt at length about the need to stay for continued treatment Vital Signs - 24 hr 11/30/19 11/30/19 12/01/19 09:37 14:37 00:08 Temperature 98.1 F 97.9 F Pulse Rate 90 98 H Respiratory 18 18 18 Rate Blood Pressure 108/66 105/64 12/01/19 12/01/19 12/01/19 03:37 05:45 06:38 Temperature 97.5 F L Pulse Rate 89 Respiratory 18 16 18 Rate Blood Pressure 111/60 Laboratory Tests 11/29/19 11/30/19 11/30/19 00:33 07:30 07:30 WBC 6.8 RBC 4.08 Hgb 12.3 Hct 37.0 MCV 90.8 MCH 30.2 MCHC 33.3 RDW 14.3 Plt Count 337 D MPV 8.6 Sodium 139 Potassium 4.4 Chloride 105 Carbon Dioxide 29 Anion Gap 5 L BUN 15.4 Creatinine 0.8 Est GFR (CKD-EPI)AfAm 108.39 Est GFR (CKD-EPI)NonAf 93.52 Random Glucose 92 Calcium 9.2 Total Bilirubin 0.4 AST 118 H ALT 160 H Alkaline Phosphatase 106 Total Protein 6.2 L Albumin 3.1 L POC Urine HCG, Qual Negative RPR Titer 11/30/19 07:30 WBC RBC Hgb Hct MCV MCH MCHC RDW Plt Count MPV Sodium Potassium Chloride Carbon Dioxide Anion Gap BUN Creatinine Est GFR (CKD-EPI)AfAm Est GFR (CKD-EPI)NonAf Random Glucose Calcium Total Bilirubin AST ALT Alkaline Phosphatase Total Protein Albumin POC Urine HCG, Qual RPR Titer Nonreactive - Physical Exam Results Vital Signs: Vital Signs Temperature 97.5 F L 12/01/19 05:45 Pulse Rate 89 12/01/19 05:45 Respiratory Rate 18 12/01/19 06:38 Blood Pressure 111/60 12/01/19 05:45 O2 Sat by Pulse Oximetry (%) - Medication Discharge Medications: Ambulatory Orders Sertraline HCl [Zoloft -] 50 mg PO DAILY 06/18/19 Ambien 10 mg PO HS 10/05/19 Xanax 2 mg PO TID 10/05/19 - Diagnosis (1) Opioid dependence with withdrawal Current Visit: Yes Status: Acute (2) Sedative, hypnotic or anxiolytic dependence, uncomplicated Current Visit: Yes Status: Acute (3) Anxiety and depression Current Visit: Yes Status: Chronic (4) Cocaine dependence, uncomplicated Current Visit: Yes Status: Chronic (5) Hepatitis C Current Visit: Yes Status: Chronic Qualifiers: Viral hepatitis chronicity: unspecified (6) IVDU (intravenous drug user) Current Visit: No Status: Chronic - AMA Did Patient Leave Against Medical Advice: Yes
[2019-12-02] MEDS ORDERED: METHADONE (DETOX) 10 MG, METHADONE (DETOX) 5 MG PO ONE (06:00)
[2019-12-03] MEDS ORDERED: METHADONE HCL 10 MG TABLET (FOR DETOX USE ONLY) PO ONE (06:00)
[2019-12-04] MEDS ORDERED: METHADONE HCL 5 MG TABLET (FOR DETOX USE ONLY) PO ONE (06:00)
== END 2019-12-01 09:06 | disposition left against medical advice (07) | DRG 770 ==
LOC: YASAS 23:49 → Y6N 11-29 01:30
PROVIDERS: ADMIT Allergy & Immunology; ATTEND Allergy & Immunology
PROC: HZ2ZZZZ Detoxification Services for Substance Abuse Treatment (ICD-10-PCS; principal; 2019-11-29)
DX: F11.23 Opioid dependence with withdrawal (principal); F13.230 Sedative, hypnotic or anxiolytic dependence with withdrawal, uncomplicated; F14.20 Cocaine dependence, uncomplicated; F12.20 Cannabis dependence, uncomplicated; F17.210 Nicotine dependence, cigarettes, uncomplicated; F41.9 Anxiety disorder, unspecified; F32.9 Major depressive disorder, single episode, unspecified; B18.2 Chronic viral hepatitis C; R00.0 Tachycardia, unspecified
CPT/HCPCS: 36415; 80053; 81025; 85027; 86593

== ENCOUNTER 2020-01-01 13:02 | Inpatient (IN) | payer OTHER ==
--- NOTE | 2020-01-01 13:55 | BHS.RME ---
Substance Use & Tx History - Substance Use History Opiates (Heroin) Substance amount: 1.5-2 bundles Frequency of use: Daily Substance route: Injection (ex: intravenous or skin popping) Date of Last Use: 01/01/20 Cocaine (Crack) Substance amount: $50 Frequency of use: Daily Substance route: Smoking Date of Last Use: 01/01/20 Benzodiazepines Substance amount: Xanax 1mg Frequency of use: Daily Substance route: Oral Date of Last Use: 12/30/19 - Last Treatment Date of last treatment: 11/2019 Treatment type: Substance Use Disorder ([facility]) Where was last treatment: Detox Physical/Psych/Mental Status - Behavior General Behavior: Increased activity (restlessness, agitation) Eye Contact: Normal - Cooperativeness Cooperativeness: Cooperative - Thinking Thought Processes: Tight, Logical, Goal Directed Thought content: Future oriented - Physical Health Problems Is patient presently having any pain?: No Does patient presently have any injuries (include location): No Does patient currently have a fever: No Is patient : No COWS - Scale Resting Pulse: 1= [place] 81-100 Sweatin= Chills/Flushing Restless Observation: 1= Difficult to Sit Still Pupil Size: 1= Pupils >than Normal Bone or Joint Aches: 1= Mild Discomfort Runny Nose/ Eye Tearin= Nasal Congestion GI Upset > 30mins: 1= Stomach Cramp Tremor Observation: 1= Tremor [place], Not Seen Yawning Observation: 1= 1-2x During Session Anxiety or Irritability: 1=Feels Anxious/Irritable Goose Flesh Skin: 0=Smooth Skin (patient is not exhibiting full withdrawals due to her prescribed Xanax at high doses.) COWS Score: 10
[2020-01-01 13:59] VITALS: BMI 17.9
--- NOTE | 2020-01-01 17:52 | HP ---
"COWS - Scale Resting Pulse: 1= [place] 81-100 Sweatin= Chills/Flushing Restless Observation: 5= Unable to Sit Still Pupil Size: 0= Normal to Room Light Bone or Joint Aches: 1= Mild Discomfort Runny Nose/ Eye Tearin= Nasal Congestion GI Upset > 30mins: 2= Nausea/Diarrhea Tremor Observation: 0= None Yawning Observation: 0= None Anxiety or Irritability: 1=Feels Anxious/Irritable Goose Flesh Skin: 0=Smooth Skin (patient is not exhibiting full withdrawals due to her prescribed Xanax at high doses.) COWS Score: 12 CIWA Score - Admission Criteria [facility] Guidelines: Admission for Medically Managed Detox: Requires at least one of the followin. CIWA greater than 12 2. Seizures within the past 24 hours 3. Delirium tremens within the past 24 hours 4. Hallucinations within the past 24 hours 5. Acute intervention needed for co occurring medical disorder 6. Acute intervention needed for co occurring psychiatric disorder 7. Severe withdrawal that cannot be handled at a lower level of care (continued vomiting, continued diarrhea, abnormal vital signs) requiring intravenous medication and/or fluids 8. Admitting History and Physical - Past Medical History Psych: Yes: Addictions - Past Surgical History Past Surgical History: Yes: None - Smoking History Smoking history: Current every day smoker Have you smoked in the past 12 months: Yes Aproximately how many cigarettes per day: 10 - Alcohol/Substance Use Hx Alcohol Use: No Admission [facility] Allergies/Adverse Reactions: Allergies Allergy/AdvReac Type Severity Reaction Status Date / Time No Known Allergies Allergy Verified 01/01/20 18:15 History of Present Illness: This report was requested by: Nithya Allison | Reference #: [id number] Others' Prescriptions Patient Name: Gretel Wang Date: 1980 Address: [address] [place] [address] Sex: Female Rx Written Rx Dispensed Drug Quantity Days Supply Prescriber Name Payment Method Dispenser zolpidem tartrate 10 mg tablet 30 30 Compa, Purificacion (Dnp) Insurance [facility] alprazolam 2 mg tablet 90 30 Compa, Purificacion (Dnp) Insurance [facility] zolpidem tartrate 10 mg tablet 30 30 Compa, Purificacion (Dnp) Insurance [facility] alprazolam 2 mg tablet 90 30 Compa, Purificacion (Dnp) Insurance [facility] alprazolam 2 mg tablet 90 30 Compa, Purificacion (Dnp) Insurance [facility] zolpidem tartrate 10 mg tablet 30 30 Compa, Purificacion (Dnp) Insurance [facility] alprazolam 2 mg tablet 90 30 Compa, Purificacion (Dnp) Insurance [facility] zolpidem tartrate 10 mg tablet 30 30 Compa, Purificacion (Dnp) Insurance [facility] alprazolam 2 mg tablet 90 30 Compa, Purificacion (Dnp) Insurance [facility] zolpidem tartrate 10 mg tablet 30 30 Compa, Purificacion (Dnp) Insurance [facility] alprazolam 2 mg tablet 90 30 Compa, Purificacion (Dnp) Insurance [facility] zolpidem tartrate 10 mg tablet 30 30 Compa, Purificacion (Dnp) Insurance [facility] zolpidem tartrate 10 mg tablet 30 30 Compa, Purificacion (Dnp) Insurance [facility] alprazolam 2 mg tablet 90 30 Compa, Purificacion (Dnp) Insurance [facility] zolpidem tartrate 10 mg tablet 30 30 Compa, Purificacion (Dnp) Insurance [facility] alprazolam 2 mg tablet 90 30 Compa, Purificacion (Dnp) Insurance [facility] alprazolam 2 mg tablet 21 7 Compa, Purificacion (Dnp) Insurance [facility] zolpidem tartrate 10 mg tablet 7 7 Compa, Purificacion (Dnp) Insurance [facility] alprazolam 2 mg tablet 90 30 Compa, Purificacion (Dnp) Insurance [facility] zolpidem tartrate 10 mg tablet 30 30 Compa, Purificacion (Dnp) Insurance [facility] alprazolam 2 mg tablet 90 30 Compa, Purificacion (Dnp) Insurance [facility] zolpidem tartrate 10 mg tablet 30 30 Compa, Purificacion (Dnp) Insurance [facility] zolpidem tartrate 10 mg tablet 30 30 Radha tobal, Purificacion (Dnp) Insurance [facility] alprazolam 2 mg tablet 90 30 Compa, Purificacion (Dnp) Insurance [facility] zolpidem tartrate 10 mg tablet 30 30 Compa, Purificacion (Dnp) Insurance [facility] alprazolam 2 mg tablet 90 30 Compa, Purificacion (Dnp) Insurance [facility] alprazolam 2 mg tablet 90 30 Compa, Purificacion (Dnp) Insurance [facility] zolpidem tartrate 10 mg tablet 30 30 Compa, Purificacion (Dnp) Insurance [facility] * - Drugs marked with an asterisk are compound drugs. If the compound drug is made up of more than one controlled substance, then each controlled substance will be a separate row in the table. pt here requesting detox from heroin and cocaine use , reports 1.5 bundles/day IV in UE/ LE neck , feet , latest used this morning . latest detox at this facility 1 month ago . cocaine - mixed w/ heroin etoh- occasional cannabis - occasional tobacco - 1/2 ppd-1 ppd PMHX : hep C recent dx no tx PSHx : denies lmp - has implant age 10 w/ paternal GM Exam Limitations: No Limitations - Review of Systems Constitutional: No Symptoms Reported EENT: reports: No Symptoms Reported Respiratory: reports: No Symptoms reported Cardiac: reports: No Symptoms Reported GI: reports: See HPI : reports: No Symptoms Reported Musculoskeletal: reports: No Symptoms Reported Integumentary: reports: See HPI Neuro: reports: Seizure (h/o intermittent seizures) Endocrine: reports: No Symptoms Reported Hematology: reports: No Symptoms Reported Psychiatric: reports: Orientated x3 Patient History - Patient Medical History Hx Anemia: No Hx Asthma: No Hx Chronic Obstructive Pulmonary Disease (COPD): No Hx Cancer: No Hx Cardiac Disorders: No Hx Congestive Heart Failure: No Hx Hypertension: No Hx Hypercholesterolemia: No Hx Pacemaker: No HX Cerebrovascular Accident: No Hx Seizures: No Hx Dementia: No Hx Diabetes: No Hx Gastrointestinal Disorders: No Hx Liver Disease: No Hx Genitourinary Disorders: No Hx Sexually Transmitted Disorders: No Hx Renal Disease (ESRD): No Hx Thyroid Disease: No Hx Human Immunodeficiency Virus (HIV): No Hx Hepatitis C: Yes (DIAGNOSED 1 WK AGO) Hx Depression: Yes Hx Suicide Attempt: No Hx Bipolar Disorder: No Hx Schizophrenia: No - Patient Surgical History Past Surgical History: No Hx Neurologic Surgery: No Hx Cataract Extraction: No Hx Cardiac Surgery: No Hx Lung Surgery: No Hx Breast Surgery: No Hx Breast Biopsy: No Hx Abdominal Surgery: No Hx Appendectomy: No Hx Cholecystectomy: No Hx Genitourinary Surgery: No Hx Section: No Hx Orthopedic Surgery: No Anesthesia Reaction: No - Smoking Cessation Smoking history: Current every day smoker Have you smoked in the past 12 months: Yes Aproximately how many cigarettes per day: 10 Cigars Per Day: 0 Hx Chewing Tobacco Use: No Initiated information on smoking cessation: Yes 'Breaking Loose' booklet given: 01/01/20 - Substances abused Heroin Substance route: Injection Frequency: Daily Amount used: 1-1.5 bundes Age of first use: 27 Date of last use: 01/01/20 Crack Substance route: Smoking Frequency: Daily Amount used: $50 Age of first use: 33 Date of last use: 01/01/20 Cocaine Substance route: Injection Frequency: Daily Amount used: $75 Age of first use: 19 Date of last use: 01/01/20 Admission Physical Exam BHS - Vital Signs Vital Signs: Vital Signs - 24 hr 01/01/20 01/01/20 13:56 14:23 Temperature 97.4 F L 97.4 F L Pulse Rate 85 85 Respiratory 18 18 Rate Blood Pressure 102/63 102/63 - Physical General Appearance: Yes: Mild Distress, Thin HEENTM: Yes: EOMI, Hearing grossly Normal, Normocephalic, Normal Voice Respiratory: Yes: Chest Non-Tender, Lungs Clear, Normal Breath Sounds, No Respiratory Distress, No Accessory Muscle Use Neck: Yes: No masses,lesions,Nodules, Trachea in good position Cardiology: Yes: Regular Rhythm, Regular Rate, S1, S2 Abdominal: Yes: Non Tender, Soft, Protuberent Musculoskeletal: Yes: Gait Steady Extremities: Yes: Normal Inspection, Normal Range of Motion, Non-Tender 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: Yes: Fully Oriented, Alert, Motor Strength 5/5 Integumentary: Yes: Warm, Track Ponce (james UE / LE neck) - Diagnostic (1) Opioid dependence with withdrawal Current Visit: Yes Status: Acute (2) Cannabis dependence Current Visit: Yes Status: Chronic (3) Nicotine dependence Current Visit: Yes Status: Chronic Qualifiers: Nicotine product type: cigarettes Breathalyzer - Breathalyzer Breathalyzer: 0 Urine Drug Screen - Test Device Lot number: [id number] Expiration date: 09/12/21 - Control Is test valid?: Yes - Results Drug screen NEGATIVE: No Urine drug screen results: MANGO-Cocaine, FEN-Fentanyl, MOP-Opiates, BZO- Benzodiazepines Inpatient Rehab Admission - Rehab Decision to Admit Inpatient rehab admission?: No"
[2020-01-01] MEDS ORDERED: MAG HYDROX/AL HYDROX/SIMETH 30 ML UNIT-DOSE CUP PO PRN (18:00)
[2020-01-01] MEDS ORDERED: BISMUTH SUBSALICYLATE 524 MG/30 ML UD PO PRN (18:00)
[2020-01-01] MEDS ORDERED: IBUPROFEN 400 MG TABLET (FP) PO PRN (18:00)
[2020-01-01] MEDS ORDERED: ACETAMINOPHEN 325 MG TABLET (FP) PO PRN ×2 (18:00)
[2020-01-01] MEDS ORDERED: MENTHOL/PHENOL 1 EACH UD MM PRN (18:00)
[2020-01-01] MEDS ORDERED: MAGNESIUM CITRATE 300 ML BOTTLE PO PRN (18:00)
[2020-01-01] MEDS ORDERED: MAGNESIUM HYDROX 2400MG/30ML ORAL SUSPENSION 30 ML CUP PO PRN (18:00)
[2020-01-01] MEDS ORDERED: cloNIDine HCL 0.1 MG TABLET PO PRN (18:02)
[2020-01-01] MEDS ORDERED: METHADONE HCL 10 MG TABLET (FOR DETOX USE ONLY) PO ONE (18:02)
[2020-01-01] MEDS ORDERED: diazePAM 5 MG TABLET PO ONE (18:03)
[2020-01-01] MEDS: THIAMINE HCL 100 MG TABLET (FP) PO SCH (22:38)
[2020-01-01] MEDS: diazePAM 5 MG TABLET PO SCH (22:38)
[2020-01-02] MEDS: diazePAM 5 MG TABLET PO SCH ×3 (06:16→21:42)
[2020-01-02 09:37] LABS: HEMATOCRIT 35.3 % (32.4-45.2); HEMOGLOBIN 11.6 GM/dL (10.7-15.3); MCH 29.6 pg (25.7-33.7); MCHC 32.7 g/dl (32.0-36.0); MEAN CELL VOLUME 90.4 fl (80-96); PLATELET COUNT 315 K/MM3 (134-434); RBC 3.91 M/mm3 (3.60-5.2); RDW 14.5 % (11.6-15.6); WHITE BLOOD COUNT 8.5 K/mm3 (4.0-10.0)
[2020-01-02] MEDS ORDERED: METHADONE HCL 10 MG TABLET (FOR DETOX USE ONLY) ONE (09:41)
[2020-01-02] MEDS ORDERED: METHADONE HCL 5 MG TABLET (FOR DETOX USE ONLY) ONE (09:41)
[2020-01-02 09:56] LABS: ALBUMIN 2.8 g/dl (3.4-5.0); BILIRUBIN,TOTAL 0.4 mg/dL (0.2-1); BLOOD UREA NITROGEN 11.8 mg/dL (7-18); CALCIUM 8.2 mg/dL (8.5-10.1); CREATININE 0.7 mg/dL (0.55-1.3); POTASSIUM 4.2 mmol/L (3.5-5.1); TOT PROT 5.8 g/dl (6.4-8.2)
[2020-01-02] MEDS ORDERED: METHADONE (DETOX) 20 MG, METHADONE (DETOX) 5 MG PO ONE (10:00)
[2020-01-02] MEDS: PRENATAL VITAMINS W/ FOLIC ACID TABLET (FP) PO SCH (10:33)
[2020-01-02] MEDS: NICOTINE 14 MG/24 HOURS TOPICAL PATCH TD SCH (10:34)
--- NOTE | 2020-01-02 10:47 | CONSULT ---
[facility] Psychiatric Consult - Data Date of interview: 01/02/20 Admission source: [facility] Identifying data: Revisit to [facility] and admission to [address] [place] [address] for this 39 y/o female self-referred for detoxification treatment. KRISTY issues : heroin, cannabis, cocaine/crack, nicotine. Patient is single, a mother of one, homeless, unemployed and supported on occasional funds from friends + relatives. Substance Abuse History: Discussed with the patient. KRISTY profile as follows : Smoking history: Current every day smoker. Have you smoked in the past 12 months: Yes. Aproximately how many cigarettes per day: 10. Cigars Per Day: 0. Hx Chewing Tobacco Use: No. Initiated information on smoking cessation: Yes. 'Breaking Loose' booklet given: 01/01/20. - Substances abused. Heroin. Substance route: Injection. Frequency: Daily. Amount used: 1-1.5 bundes. Age of first use: 27. Date of last use: 01/01/20. Crack. Substance route: Smoking. Frequency: Daily. Amount used: $50. Age of first use: 33. Date of last use: 01/01/20. Cocaine. Substance route: Injection. Frequency: Daily. Amount used: $75. Age of first use: 19. Date of last use: 01/01/20 Medical History: Medical profile is remarkable for hepatitis C (untreated). Psychiatric History: Patient denies history of psychiatric hospitalizations. Reportedly diagnosed with MDD + Anxiety Disorder (since 2011, by a private psychiatrist). Ms Wnag is still followed by a private psychiatrist, Dr Chatman, in the [place]. She is prescribed sertraline, alprazolam and zolpidem. Patient denies history of suicide attempts. Physical/Sexual Abuse/Trauma History: Patient denies. Additional Comment: Urine drug screen results: MANGO-Cocaine, FEN-Fentanyl, MOP- Opiates, BZO-Benzodiazepines. Noted. Mental Status Exam - Mental Status Exam Alert and Oriented to: Time, Place, Person Cognitive Function: Good Patient Appearance: Well Groomed (petite, frail habitus, small stature) Mood: Withdrawn, Hopeful Affect: Mood Congruent, Constricted Patient Behavior: Fatigued, Appropriate, Cooperative Speech Pattern: Clear, Appropriate Voice Loudness: Normal Thought Process: Intact, Goal Oriented Thought Disorder: Not Present Hallucinations: Denies Suicidal Ideation: Denies Homicidal Ideation: Denies Insight/Judgement: Poor Sleep: Fair Appetite: Fair, Weight loss Gait/Station: Normal Psychiatric Findings - Problem List ([place] 1, 2,3) (1) Opioid dependence with withdrawal Current Visit: Yes Status: Acute (2) Cannabis dependence Current Visit: Yes Status: Chronic (3) Cocaine dependence, uncomplicated Current Visit: Yes Status: Chronic (4) Nicotine dependence Current Visit: Yes Status: Chronic Qualifiers: Nicotine product type: cigarettes (5) Substance induced mood disorder Current Visit: Yes Status: Chronic (6) History of depression Current Visit: Yes Status: Chronic - Initial Treatment Plan Initial Treatment Plan: Psychoeducation. Detoxification. Sleep hygiene. NA meetings. Resumed : zoloft 50 mg po daily. Side effects/benefits are discussed with the patient. Ms Wang is in agreement with this plan of care. Consent (verbal) given to MD. Valderrama.
--- NOTE | 2020-01-02 11:45 | PN ---
[facility] COWS - Scale Resting Pulse: 0= [place] 80 or Below Sweatin= Beads of Sweat on Face Restless Observation: 1= Difficult to Sit Still Pupil Size: 0= Normal to Room Light Bone or Joint Aches: 2= Severe Diffuse Aches Runny Nose/ Eye Tearin= None GI Upset > 30mins: 0= None Tremor Observation of Outstretched Hands: 0= None Yawning Observation: 1= 1-2x During Session Anxiety or Irritability: 2=Irritable/Anxious Goose Flesh Skin: 0=Smooth Skin COWS Score: 9 S Progress Note (SOAP) Subjective: c/o sweats, anxiety, irritability, and muscle aches. Objective: 01/02/20 11:44 Vital Signs 01/02/20 01/02/20 01/02/20 03:50 06:39 08:43 Temperature 97.7 F 96 F L Pulse Rate 77 76 Respiratory 16 18 20 Rate Blood Pressure 103/60 112/66 O2 Sat by Pulse 97 Oximetry (%) Laboratory Last Values WBC 8.5 K/mm3 (4.0-10.0) 01/02/20 07:15 RBC 3.91 M/mm3 (3.60-5.2) 01/02/20 07:15 Hgb 11.6 GM/dL (10.7-15.3) 01/02/20 07:15 Hct 35.3 % (32.4-45.2) 01/02/20 07:15 MCV 90.4 fl (80-96) 01/02/20 07:15 MCH 29.6 pg (25.7-33.7) 01/02/20 07:15 MCHC 32.7 g/dl (32.0-36.0) 01/02/20 07:15 RDW 14.5 % (11.6-15.6) 01/02/20 07:15 Plt Count 315 K/MM3 (134-434) 01/02/20 07:15 MPV 9.0 fl (7.5-11.1) 01/02/20 07:15 Sodium 142 mmol/L (136-145) 01/02/20 07:15 Potassium 4.2 mmol/L (3.5-5.1) 01/02/20 07:15 Chloride 107 mmol/L (98-107) 01/02/20 07:15 Carbon Dioxide 30 mmol/L (21-32) 01/02/20 07:15 Anion Gap 5 MMOL/L (8-16) L 01/02/20 07:15 BUN 11.8 mg/dL (7-18) 01/02/20 07:15 Creatinine 0.7 mg/dL (0.55-1.3) 01/02/20 07:15 Est GFR (CKD-EPI)AfAm 127.39 01/02/20 07:15 Est GFR (CKD-EPI)NonAf 109.91 01/02/20 07:15 Random Glucose 86 mg/dL (74-106) 01/02/20 07:15 Calcium 8.2 mg/dL (8.5-10.1) L 01/02/20 07:15 Total Bilirubin 0.4 mg/dL (0.2-1) 01/02/20 07:15 AST 159 U/L (15-37) H 01/02/20 07:15 ALT 241 U/L (13-61) H 01/02/20 07:15 Alkaline Phosphatase 122 U/L (45-117) H 01/02/20 07:15 Total Protein 5.8 g/dl (6.4-8.2) L 01/02/20 07:15 Albumin 2.8 g/dl (3.4-5.0) L 01/02/20 07:15 Labs noted with elevated AST/ALT. 01/02/20 13:26 Assessment: 01/02/20 11:44 AOX3, in no acute respiratory distress. Full ROM, ambulating in the unit. Elevated liver enzymes. Withdrawal symptoms. 01/02/20 13:27 Plan: continue detox. Increase fluids.
[2020-01-02] MEDS: diazePAM 5 MG TABLET PO PRN (12:47)
[2020-01-02] MEDS: MELATONIN 5 MG TABLETS PO PRN (21:42)
[2020-01-02] MEDS: THIAMINE HCL 100 MG TABLET (FP) PO SCH (21:42)
[2020-01-03] MEDS: diazePAM 5 MG TABLET PO SCH ×2 (05:44→17:18)
--- NOTE | 2020-01-03 09:28 | PN ---
BHS COWS - Scale Resting Pulse: 0= [place] 80 or Below Sweatin= Chills/Flushing Restless Observation: 0= Sits Still Pupil Size: 1= Pupils >than Normal Bone or Joint Aches: 1= Mild Discomfort Runny Nose/ Eye Tearin= None GI Upset > 30mins: 1= Stomach Cramp Tremor Observation of Outstretched Hands: 1= Tremor [place] [facility], Not Seen Yawning Observation: 0= None Anxiety or Irritability: 2=Irritable/Anxious Goose Flesh Skin: 0=Smooth Skin COWS Score: 7 BHS Progress Note (SOAP) Subjective: 39 years old female admitted on 01/01/20 for opiate withdrawal sx management treating with methadone detox regiment taking xanax 2 mg po tid received refill monthly on 12/22/19 currently on valium detox regiment patient will continue xanax tretment Objective: 01/03/20 09:27 Vital Signs Temperature 96.8 F L 01/03/20 08:34 Pulse Rate 80 01/03/20 08:34 Respiratory Rate 16 01/03/20 08:34 Blood Pressure 92/62 01/03/20 08:34 O2 Sat by Pulse Oximetry (%) 98 01/03/20 06:41 Laboratory Last Values WBC 8.5 K/mm3 (4.0-10.0) 01/02/20 07:15 RBC 3.91 M/mm3 (3.60-5.2) 01/02/20 07:15 Hgb 11.6 GM/dL (10.7-15.3) 01/02/20 07:15 Hct 35.3 % (32.4-45.2) 01/02/20 07:15 MCV 90.4 fl (80-96) 01/02/20 07:15 MCH 29.6 pg (25.7-33.7) 01/02/20 07:15 MCHC 32.7 g/dl (32.0-36.0) 01/02/20 07:15 RDW 14.5 % (11.6-15.6) 01/02/20 07:15 Plt Count 315 K/MM3 (134-434) 01/02/20 07:15 MPV 9.0 fl (7.5-11.1) 01/02/20 07:15 Sodium 142 mmol/L (136-145) 01/02/20 07:15 Potassium 4.2 mmol/L (3.5-5.1) 01/02/20 07:15 Chloride 107 mmol/L (98-107) 01/02/20 07:15 Carbon Dioxide 30 mmol/L (21-32) 01/02/20 07:15 Anion Gap 5 MMOL/L (8-16) L 01/02/20 07:15 BUN 11.8 mg/dL (7-18) 01/02/20 07:15 Creatinine 0.7 mg/dL (0.55-1.3) 01/02/20 07:15 Est GFR (CKD-EPI)AfAm 127.39 01/02/20 07:15 Est GFR (CKD-EPI)NonAf 109.91 01/02/20 07:15 Random Glucose 86 mg/dL (74-106) 01/02/20 07:15 Calcium 8.2 mg/dL (8.5-10.1) L 01/02/20 07:15 Total Bilirubin 0.4 mg/dL (0.2-1) 01/02/20 07:15 AST 159 U/L (15-37) H 01/02/20 07:15 ALT 241 U/L (13-61) H 01/02/20 07:15 Alkaline Phosphatase 122 U/L (45-117) H 01/02/20 07:15 Total Protein 5.8 g/dl (6.4-8.2) L 01/02/20 07:15 Albumin 2.8 g/dl (3.4-5.0) L 01/02/20 07:15 lab noted ast elevation discontinue tylenal Assessment: 01/03/20 09:30 opiate withdrawal Plan: methadone regiment
[2020-01-03] MEDS ORDERED: METHADONE HCL 10 MG TABLET (FOR DETOX USE ONLY) PO ONE (10:00)
[2020-01-03] MEDS: PRENATAL VITAMINS W/ FOLIC ACID TABLET (FP) PO SCH (10:26)
[2020-01-03] MEDS: SERTRALINE HCL 50 MG TABLET (FP) PO SCH (10:26)
[2020-01-03] MEDS: NICOTINE 14 MG/24 HOURS TOPICAL PATCH TD SCH (10:27)
[2020-01-03] MEDS: diazePAM 5 MG TABLET PO PRN ×3 (10:29→23:01)
[2020-01-03] MEDS: METHOCARBAMOL 500 MG TABLET PO PRN (22:31)
[2020-01-03] MEDS: MELATONIN 5 MG TABLETS PO PRN (22:32)
[2020-01-03] MEDS: THIAMINE HCL 100 MG TABLET (FP) PO SCH (22:35)
[2020-01-04] MEDS ORDERED: diazePAM 5 MG TABLET PO ONE (06:00)
--- NOTE | 2020-01-04 09:23 | PN ---
BHS COWS - Scale Resting Pulse: 1= [place] 81-100 Sweatin= Chills/Flushing Restless Observation: 1= Difficult to Sit Still Pupil Size: 1= Pupils >than Normal Bone or Joint Aches: 1= Mild Discomfort Runny Nose/ Eye Tearin= Nasal Congestion GI Upset > 30mins: 1= Stomach Cramp Tremor Observation of Outstretched Hands: 0= None Yawning Observation: 1= 1-2x During Session Anxiety or Irritability: 1=Feels Anxious/Irritable Goose Flesh Skin: 0=Smooth Skin COWS Score: 9 BHS Progress Note (SOAP) Subjective: pt states she is feeling fine. O: Laboratory Tests 01/02/20 01/02/20 07:15 07:15 WBC 8.5 RBC 3.91 Hgb 11.6 Hct 35.3 MCV 90.4 MCH 29.6 MCHC 32.7 RDW 14.5 Plt Count 315 MPV 9.0 Sodium 142 Potassium 4.2 Chloride 107 Carbon Dioxide 30 Anion Gap 5 L BUN 11.8 Creatinine 0.7 Est GFR (CKD-EPI)AfAm 127.39 Est GFR (CKD-EPI)NonAf 109.91 Random Glucose 86 Calcium 8.2 L Total Bilirubin 0.4 AST 159 H ALT 241 H Alkaline Phosphatase 122 H Total Protein 5.8 L Albumin 2.8 L Vital Signs - 24 hr 01/03/20 01/03/20 01/03/20 12:34 16:59 21:17 Temperature 97.1 F L 97.7 F 98.1 F Pulse Rate 83 87 89 Respiratory 18 16 16 Rate Blood Pressure 96/58 L 113/77 107/70 O2 Sat by Pulse 99 98 Oximetry (%) 01/04/20 01/04/20 01/04/20 00:25 03:20 06:52 Temperature 97.1 F L Pulse Rate 86 Respiratory 18 16 18 Rate Blood Pressure 99/64 O2 Sat by Pulse 100 Oximetry (%) increased lliver enzymes- HCV pos a/p: OUD- pt to leave in 2 days- d/w pt at length about MAT methadone/Suboxone- pt states will go to [facility] outpt HCV pos- d/w pt increased liver enzymes- counseled pt re alchol use and need for HCV Rx
[2020-01-04] MEDS ORDERED: METHADONE HCL 10 MG TABLET (FOR DETOX USE ONLY) ONE (09:43)
[2020-01-04] MEDS ORDERED: METHADONE HCL 5 MG TABLET (FOR DETOX USE ONLY) ONE (09:44)
[2020-01-04] MEDS: NICOTINE 14 MG/24 HOURS TOPICAL PATCH TD SCH (09:53)
[2020-01-04] MEDS: PRENATAL VITAMINS W/ FOLIC ACID TABLET (FP) PO SCH (09:53)
[2020-01-04] MEDS: SERTRALINE HCL 50 MG TABLET (FP) PO SCH (09:53)
[2020-01-04] MEDS: diazePAM 5 MG TABLET PO PRN ×2 (09:55→16:47)
[2020-01-04] MEDS ORDERED: METHADONE (DETOX) 10 MG, METHADONE (DETOX) 5 MG PO ONE (10:00)
[2020-01-04] MEDS: METHOCARBAMOL 500 MG TABLET PO PRN (13:16)
[2020-01-04 14:59] VITALS: BP 102/72; PULSE 83; TEMP 98
--- NOTE | 2020-01-04 18:02 | DS ---
[facility] Detox Discharge Summary Admission Date: 01/01/20 Discharge Date: 01/04/20 - History Present History: Cocaine Dependence, Opioid Dependence, Sedative Dependence Pertinent Past History: PMHX : hep C recent dx no tx PSHx : denies lmp - has implant age 10 w/ paternal GM " - Physical Exam Results Vital Signs: Vital Signs Temperature 98 F 01/04/20 12:39 Pulse Rate 83 01/04/20 12:39 Respiratory Rate 16 01/04/20 12:39 Blood Pressure 102/72 01/04/20 12:39 O2 Sat by Pulse Oximetry (%) 100 01/04/20 12:30 Pertinent Admission Physical Exam Findings: As per H&P "pt is 39 F here requesting detox from heroin and cocaine use , reports 1.5 bundles/day IV in UE/ LE neck , feet , latest used this morning. latest detox at this facility 1 month ago . cocaine - mixed w/ heroin etoh- occasional cannabis - occasional tobacco - 1/2 ppd-1 ppd Laboratory Last Values WBC 8.5 K/mm3 (4.0-10.0) 01/02/20 07:15 RBC 3.91 M/mm3 (3.60-5.2) 01/02/20 07:15 Hgb 11.6 GM/dL (10.7-15.3) 01/02/20 07:15 Hct 35.3 % (32.4-45.2) 01/02/20 07:15 MCV 90.4 fl (80-96) 01/02/20 07:15 MCH 29.6 pg (25.7-33.7) 01/02/20 07:15 MCHC 32.7 g/dl (32.0-36.0) 01/02/20 07:15 RDW 14.5 % (11.6-15.6) 01/02/20 07:15 Plt Count 315 K/MM3 (134-434) 01/02/20 07:15 MPV 9.0 fl (7.5-11.1) 01/02/20 07:15 Sodium 142 mmol/L (136-145) 01/02/20 07:15 Potassium 4.2 mmol/L (3.5-5.1) 01/02/20 07:15 Chloride 107 mmol/L (98-107) 01/02/20 07:15 Carbon Dioxide 30 mmol/L (21-32) 01/02/20 07:15 Anion Gap 5 MMOL/L (8-16) L 01/02/20 07:15 BUN 11.8 mg/dL (7-18) 01/02/20 07:15 Creatinine 0.7 mg/dL (0.55-1.3) 01/02/20 07:15 Est GFR (CKD-EPI)AfAm 127.39 01/02/20 07:15 Est GFR (CKD-EPI)NonAf 109.91 01/02/20 07:15 Random Glucose 86 mg/dL (74-106) 01/02/20 07:15 Calcium 8.2 mg/dL (8.5-10.1) L 01/02/20 07:15 Total Bilirubin 0.4 mg/dL (0.2-1) 01/02/20 07:15 AST 159 U/L (15-37) H 01/02/20 07:15 ALT 241 U/L (13-61) H 01/02/20 07:15 Alkaline Phosphatase 122 U/L (45-117) H 01/02/20 07:15 Total Protein 5.8 g/dl (6.4-8.2) L 01/02/20 07:15 Albumin 2.8 g/dl (3.4-5.0) L 01/02/20 07:15 POC Urine HCG, Qual Negative 01/01/20 13:59 Labs reviewed - Treatment Hospital Course: Detox Protocol Followed, Detoxed Safely, Responded well, Disc harged Condition Good - Medication Discharge Medications: Ambulatory Orders Sertraline HCl [Zoloft -] 50 mg PO DAILY 06/18/19 Alprazolam [Xanax] 2 mg PO TID 01/01/20 Zolpidem Tartrate [Ambien] 10 mg PO DAILY 01/01/20 - Diagnosis (1) Opioid dependence with withdrawal Current Visit: Yes Status: Acute (2) Cocaine dependence, uncomplicated Current Visit: Yes Status: Chronic (3) Sedative, hypnotic or anxiolytic dependence, uncomplicated Current Visit: Yes Status: Chronic (4) Substance-induced anxiety disorder Current Visit: Yes Status: Chronic - AMA Did Patient Leave Against Medical Advice: No
[2020-01-05] MEDS ORDERED: METHADONE HCL 10 MG TABLET (FOR DETOX USE ONLY) PO ONE (10:00)
[2020-01-06] MEDS ORDERED: METHADONE HCL 5 MG TABLET (FOR DETOX USE ONLY) PO ONE (06:00)
== END 2020-01-04 18:13 | disposition home or self-care (01) | DRG 773 ==
LOC: YASAS 13:02 → Y3N 18:45
PROVIDERS: ADMIT Allergy & Immunology; ATTEND Allergy & Immunology
PROC: HZ2ZZZZ Detoxification Services for Substance Abuse Treatment (ICD-10-PCS; principal; 2020-01-01)
DX: F11.23 Opioid dependence with withdrawal (principal); F13.20 Sedative, hypnotic or anxiolytic dependence, uncomplicated; F14.20 Cocaine dependence, uncomplicated; F12.20 Cannabis dependence, uncomplicated; F17.210 Nicotine dependence, cigarettes, uncomplicated; F19.24 Other psychoactive substance dependence with psychoactive substance-induced mood disorder; F19.280 Other psychoactive substance dependence with psychoactive substance-induced anxiety disorder; F32.9 Major depressive disorder, single episode, unspecified; R74.0 Nonspecific elevation of levels of transaminase and lactic acid dehydrogenase [LDH]; R74.8 Abnormal levels of other serum enzymes; Z56.0 Unemployment, unspecified; Z59.0 Homelessness
CPT/HCPCS: 36415; 80053; 81025; 85027

== ENCOUNTER 2020-05-31 19:23 | Inpatient (IN) | payer OTHER ==
[2020-05-31 19:41] VITALS: BMI 16.1
--- NOTE | 2020-05-31 20:18 | HP ---
"COWS - Scale Resting Pulse: 1= [place] 81-100 Sweatin= No chills or Flushing Restless Observation: 0= Sits Still Pupil Size: 0= Normal to Room Light Bone or Joint Aches: 0= None Runny Nose/ Eye Tearin= None GI Upset > 30mins: 0= None Tremor Observation: 0= None Yawning Observation: 0= None Anxiety or Irritability: 1=Feels Anxious/Irritable Goose Flesh Skin: 0=Smooth Skin (currently intoxicated) COWS Score: 2 CIWA Score - Admission Criteria [facility] Guidelines: Admission for Medically Managed Detox: Requires at least one of the followin. CIWA greater than 12 2. Seizures within the past 24 hours 3. Delirium tremens within the past 24 hours 4. Hallucinations within the past 24 hours 5. Acute intervention needed for co occurring medical disorder 6. Acute intervention needed for co occurring psychiatric disorder 7. Severe withdrawal that cannot be handled at a lower level of care (continued vomiting, continued diarrhea, abnormal vital signs) requiring intravenous medication and/or fluids 8. Admitting History and Physical - Past Medical History Psych: Yes: Addictions - Past Surgical History Past Surgical History: Yes: None - Smoking History Smoking history: Current every day smoker Have you smoked in the past 12 months: Yes Aproximately how many cigarettes per day: 10 - Alcohol/Substance Use Hx Alcohol Use: No Admission [facility] Allergies/Adverse Reactions: Allergies Allergy/AdvReac Type Severity Reaction Status Date / Time No Known Allergies Allergy Verified 05/31/20 21:50 History of Present Illness: This report was requested by: Nithya Allison | Reference #: [id number] Others' Prescriptions Patient Name: Gretel Wang Date: 1980 Address: [address] [place] [address] Sex: Female Rx Written Rx Dispensed Drug Quantity Days Supply Prescriber Name Payment Method Dispenser 01/16/2020 01/18/2020 zolpidem tartrate 10 mg tablet 30 30 Compa, Purificacion ([facility]) Insurance [facility] 01/16/2020 01/18/2020 alprazolam 2 mg tablet 90 30 Compa, Purificacion ([facility]) Insurance [facility] 12/22/2019 12/22/2019 zolpidem tartrate 10 mg tablet 30 30 Compa, Purificacion ([facility]) Insurance [facility] 12/22/2019 12/22/2019 alprazolam 2 mg tablet 90 30 Compa, Purificacion (Dnp) Insurance [facility] 11/24/2019 11/24/2019 zolpidem tartrate 10 mg tablet 30 30 Compa, Purificacion (Dnp) Insurance [facility] 11/24/2019 11/24/2019 alprazolam 2 mg tablet 90 30 Compa, Purificacion (Dnp) Insurance [facility] 10/27/2019 10/27/2019 alprazolam 2 mg tablet 90 30 Compa, Pur ificacion (Dnp) Insurance [facility] 10/27/2019 10/27/2019 zolpidem tartrate 10 mg tablet 30 30 Compa, Purificacion (Dnp) Insurance [facility] 09/29/2019 09/29/2019 alprazolam 2 mg tablet 90 30 Compa, Purificacion (Dnp) Insurance [facility] 09/29/2019 09/29/2019 zolpidem tartrate 10 mg tablet 30 30 Compa, Purificacion (Dnp) Insurance [facility] 09/01/2019 09/01/2019 alprazolam 2 mg tablet 90 30 Compa, Purificacion (Dnp) Insurance [facility] 09/01/2019 09/01/2019 zolpidem tartrate 10 mg tablet 30 30 Arjun obal, Purificacion (Dnp) Insurance [facility] 08/04/2019 08/05/2019 alprazolam 2 mg tablet 90 30 Compa, Purificacion (Dnp) Insurance [facility] 08/04/2019 08/05/2019 zolpidem tartrate 10 mg tablet 30 30 Compa, Purificacion (Dnp) Insurance [facility] 07/09/2019 07/09/2019 zolpidem tartrate 10 mg tablet 30 30 Compa, Purificacion (Dnp) Insurance [facility] 07/09/2019 07/09/2019 alprazolam 2 mg tablet 90 30 Compa, Purificacion (Dnp) Insurance [facility] 06/11/2019 06/12/2019 zolpidem tartrate 10 mg tablet 30 30 Compa, Purificacion (Dnp) Insurance [facility] 06/11/2019 06/12/2019 alprazolam 2 mg tablet 90 30 Compa, Purificacion (Dnp) Insurance [facility] 40 y.o. female requesting detox from heroin , reports 1 bundle/day IV in UE/ LE neck , feet , latest used 2 hours ago. OD in the past , denies abscess , denies endocarditis. Use of heroin x 13 years, longest sobriety while on MMTP 2 years [id number] , MDD 90 mg, lost insurance , stopped going . cocaine - 20 -40 $ /day etoh- occasional use tobacco - 1/2 ppd PMHX : hep C + no tx PSHx : denies lmp -norplant age 10 w/ paternal GM Exam Limitations: Clinical Condition - Review of Systems Constitutional: Loss of Appetite, Unintentional Wgt. Loss (wt loss form 105 lbs 2/2 substance use.) EENT: reports: No Symptoms Reported Respiratory: reports: No Symptoms reported Cardiac: reports: No Symptoms Reported GI: reports: Poor Appetite : reports: No Symptoms Reported Musculoskeletal: reports: No Symptoms Reported Integumentary: reports: See HPI Neuro: reports: No Symptoms reported Endocrine: reports: No Symptoms Reported Hematology: reports: No Symptoms Reported Psychiatric: reports: Orientated x3, Anxious, Disorientated Patient History - Patient Medical History Hx Anemia: No Hx Asthma: No Hx Chronic Obstructive Pulmonary Disease (COPD): No Hx Cancer: No Hx Cardiac Disorders: No Hx Congestive Heart Failure: No Hx Hypertension: No Hx Hypercholesterolemia: No Hx Pacemaker: No HX Cerebrovascular Accident: No Hx Seizures: No Hx Dementia: No Hx Diabetes: No Hx Gastrointestinal Disorders: No Hx Liver Disease: No Hx Genitourinary Disorders: No Hx Sexually Transmitted Disorders: No Hx Renal Disease (ESRD): No Hx Thyroid Disease: No Hx Human Immunodeficiency Virus (HIV): No Hx Hepatitis C: Yes (DIAGNOSED 1 WK AGO) Hx Depression: Yes Hx Suicide Attempt: No Hx Bipolar Disorder: No Hx Schizophrenia: No - Patient Surgical History Past Surgical History: No Hx Neurologic Surgery: No Hx Cataract Extraction: No Hx Cardiac Surgery: No Hx Lung Surgery: No Hx Breast Surgery: No Hx Breast Biopsy: No Hx Abdominal Surgery: No Hx Appendectomy: No Hx Cholecystectomy: No Hx Genitourinary Surgery: No Hx Section: No Hx Orthopedic Surgery: No Anesthesia Reaction: No - Smoking Cessation Smoking history: Current every day smoker Have you smoked in the past 12 months: Yes Aproximately how many cigarettes per day: 10 Cigars Per Day: 0 Hx Chewing Tobacco Use: No Initiated information on smoking cessation: Yes 'Breaking Loose' booklet given: 06/01/20 - Substances abused Heroin Substance route: Injection Frequency: Daily Amount used: 1 bundle Age of first use: 27 Date of last use: 05/31/20 Cocaine Other (specify): crack Substance route: Injection Frequency: Daily Amount used: 20 to 40 dollars Age of first use: 19 Date of last use: 05/31/20 Alcohol Substance route: Oral Frequency: Daily Amount used: 2 of Madeline Age of first use: 17 Date of last use: 05/31/20 Admission Physical Exam BHS - Vital Signs Vital Signs: Vital Signs - 24 hr 05/31/20 19:40 Temperature 98.4 F Pulse Rate 91 H Respiratory 18 Rate Blood Pressure 133/85 - Physical General Appearance: Yes: Disheveled, Anxious HEENTM: Yes: EOMI, Hearing grossly Normal, Normocephalic, Normal Voice Respiratory: Yes: Chest Non-Tender, Lungs Clear, Normal Breath Sounds, No Respiratory Distress, No Accessory Muscle Use Neck: Yes: No masses,lesions,Nodules, Trachea in good position Cardiology: Yes: Regular Rhythm, Regular Rate, S1, S2 Abdominal: Yes: Non Tender, Flat, Soft Musculoskeletal: Yes: Gait Steady Extremities: Yes: Normal Range of Motion, Non-Tender 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: Yes: Alert, Motor Strength 5/5, Depressed Affect Integumentary: Yes: Warm, Track Ponce (neck, UE/ LE, excoriation ( deep ) left side of neck , scarring right side of neck and forehead .) - Addiitonal Findings: 06/19/2019 QTc 411 ms - Diagnostic (1) Opioid abuse with intoxication Current Visit: Yes Status: Chronic (2) Cocaine dependence, uncomplicated Current Visit: Yes Status: Chronic (3) Nicotine dependence Current Visit: Yes Status: Chronic Qualifiers: Nicotine product type: cigarettes Breathalyzer - Breathalyzer Breathalyzer: 0.026 Urine Drug Screen - Test Device Lot number: [id number] Expiration date: 01/19/22 - Control Is test valid?: Yes - Results Drug screen NEGATIVE: No Urine drug screen results: MANGO-Cocaine, FEN-Fentanyl, MOP-Opiates Inpatient Rehab Admission - Rehab Decision to Admit Inpatient rehab admission?: No"
[2020-05-31] MEDS ORDERED: MAGNESIUM HYDROX 2400MG/30ML ORAL SUSPENSION 30 ML CUP PO PRN (20:29)
[2020-05-31] MEDS ORDERED: NICOTINE POLACRILEX 2 MG GUM BUC PRN (20:29)
[2020-05-31] MEDS ORDERED: MAG HYDROX/AL HYDROX/SIMETH 30 ML UNIT-DOSE CUP PO PRN (20:29)
[2020-05-31] MEDS ORDERED: MAGNESIUM CITRATE 300 ML BOTTLE PO PRN (20:29)
[2020-05-31] MEDS ORDERED: METHOCARBAMOL 500 MG TABLET PO PRN (20:29)
[2020-05-31] MEDS ORDERED: ACETAMINOPHEN 325 MG TABLET (FP) PO PRN (20:29)
[2020-05-31] MEDS ORDERED: IBUPROFEN 400 MG TABLET (FP) PO PRN (20:29)
[2020-05-31] MEDS ORDERED: BISMUTH SUBSALICYLATE 524 MG/30 ML UD PO PRN (20:29)
[2020-05-31] MEDS ORDERED: MENTHOL/PHENOL 1 EACH UD MM PRN (20:29)
[2020-05-31] MEDS ORDERED: cloNIDine HCL 0.1 MG TABLET PO PRN (20:35)
[2020-05-31] MEDS ORDERED: METHADONE HCL 10 MG TABLET (FOR DETOX USE ONLY) PO ONE (23:00)
[2020-05-31] MEDS: THIAMINE HCL 100 MG TABLET (FP) PO SCH (23:12)
[2020-05-31] MEDS: BACITRACIN 0.9 GM PACKET TP SCH (23:12)
[2020-05-31] MEDS: hydrOXYzine PAMOATE 25 MG CAPSULE (FP) PO PRN (23:15)
[2020-06-01] MEDS ORDERED: METHADONE HCL 10 MG TABLET (FOR DETOX USE ONLY) ONE (08:45)
[2020-06-01] MEDS ORDERED: METHADONE HCL 5 MG TABLET (FOR DETOX USE ONLY) ONE (08:46)
[2020-06-01] MEDS: BACITRACIN 0.9 GM PACKET TP SCH ×2 (09:44→22:56)
[2020-06-01] MEDS: NICOTINE 7 MG/24 HOURS TOPICAL PATCH TD SCH (09:44)
[2020-06-01] MEDS: PRENATAL VITAMINS W/ FOLIC ACID TABLET (FP) PO SCH (09:44)
[2020-06-01] MEDS: ACETAMINOPHEN 325 MG TABLET (FP) PO PRN (09:46)
[2020-06-01] MEDS ORDERED: METHADONE (DETOX) 20 MG, METHADONE (DETOX) 5 MG PO ONE (10:00)
[2020-06-01] MEDS ORDERED: LOPERAMIDE HCL 2 MG CAPSULE PO ONE (10:18)
--- NOTE | 2020-06-01 10:21 | PN ---
BHS COWS - Scale Resting Pulse: 0= [place] 80 or Below Sweatin= Chills/Flushing Restless Observation: 0= Sits Still Pupil Size: 1= Pupils >than Normal Bone or Joint Aches: 2= Severe Diffuse Aches Runny Nose/ Eye Tearin= None GI Upset > 30mins: 2= Nausea/Diarrhea Tremor Observation of Outstretched Hands: 0= None Yawning Observation: 0= None Anxiety or Irritability: 2=Irritable/Anxious Goose Flesh Skin: 3=Piloerection COWS Score: 11 BHS Progress Note (SOAP) Subjective: 40 years old female admitted on 05/31/20 for opiate withdrawal sx management treating with methadone detox regiment report loose stool imodium 4 mg po x 1 bentyl 20 mg po x 1 Objective: 06/01/20 10:24 Vital Signs - 24 hr 05/31/20 05/31/20 05/31/20 19:40 21:57 22:10 Temperature 98.4 F 98.4 F Pulse Rate 91 H 91 H Respiratory 18 18 Rate Blood Pressure 133/85 133/85 O2 Sat by Pulse 99 Oximetry (%) 05/31/20 06/01/20 06/01/20 23:00 06:13 08:37 Temperature 97.1 F L 98.6 F 98.1 F Pulse Rate 86 68 74 Respiratory 18 16 18 Rate Blood Pressure 117/74 93/67 109/69 O2 Sat by Pulse 97 100 Oximetry (%) Laboratory Tests 05/31/20 19:41 POC Urine HCG, Qual Negative 06/01/20 10:24 lab pending Assessment: 06/01/20 10:24 opiate withdrawal Plan: methadone regiment
[2020-06-01] MEDS ORDERED: DICYCLOMINE HCL 10 MG CAPSULE PO ONE (11:00)
[2020-06-01 12:18] LABS: HEMATOCRIT 32.6 % (32.4-45.2); HEMOGLOBIN 10.7 GM/dL (10.7-15.3); MCH 28.4 pg (25.7-33.7); MCHC 32.9 g/dl (32.0-36.0); MEAN CELL VOLUME 86.3 fl (80-96); MEAN PLT VOLUME 8.7 fl (7.5-11.1); PLATELET COUNT 296 K/MM3 (134-434); RBC 3.78 M/mm3 (3.60-5.2); RDW 15.7 % (11.6-15.6); WHITE BLOOD COUNT 5.8 K/mm3 (4.0-10.0)
[2020-06-01 12:21] LABS: ALBUMIN 3.3 g/dl (3.4-5.0); BILIRUBIN,TOTAL 0.5 mg/dL (0.2-1); BLOOD UREA NITROGEN 8.9 mg/dL (7-18); CALCIUM 8.8 mg/dL (8.5-10.1); CREATININE 0.7 mg/dL (0.55-1.3); POTASSIUM 3.9 mmol/L (3.5-5.1); TOT PROT 6.1 g/dl (6.4-8.2)
--- NOTE | 2020-06-01 14:33 | CONSULT ---
[facility] Psychiatric Consult - Data Date of interview: 06/01/20 Admission source: [facility] Identifying data: Two visits at bedside. Patient declines to cooperate for psychiatric interview. Medical provider to re-enter consult request if patient wishes to have psychiatric evaluation.
[2020-06-01] MEDS ORDERED: MASKS NR ONE (18:49)
[2020-06-01] MEDS: MELATONIN 5 MG TABLETS PO PRN (22:55)
[2020-06-01] MEDS: THIAMINE HCL 100 MG TABLET (FP) PO SCH (22:56)
--- NOTE | 2020-06-02 09:16 | PN ---
BHS COWS - Scale Resting Pulse: 0= [place] 80 or Below Sweatin= Chills/Flushing Restless Observation: 0= Sits Still Pupil Size: 1= Pupils >than Normal Bone or Joint Aches: 2= Severe Diffuse Aches Runny Nose/ Eye Tearin= None GI Upset > 30mins: 1= Stomach Cramp Tremor Observation of Outstretched Hands: 1= Tremor [place], Not Seen Yawning Observation: 0= None Anxiety or Irritability: 2=Irritable/Anxious Goose Flesh Skin: 0=Smooth Skin COWS Score: 8 BHS Progress Note (SOAP) Subjective: 40 years old female was admitted on 05/31/20 for opiate withdrawal sx management treating with methadone detox regiment discussing medication assisted treatment program with ms correia and necessity of narcan available Objective: 06/02/20 09:19 Vital Signs - 24 hr 06/01/20 06/01/20 06/01/20 12:45 16:55 21:17 Temperature 98.4 F 97.3 F L 97.1 F L Pulse Rate 58 L 75 75 Respiratory 18 17 17 Rate Blood Pressure 99/67 110/65 109/68 O2 Sat by Pulse 100 97 Oximetry (%) 06/02/20 06/02/20 06:52 08:50 Temperature 97.9 F 98.6 F Pulse Rate 96 H 80 Respiratory 18 18 Rate Blood Pressure 116/84 125/84 O2 Sat by Pulse 99 Oximetry (%) Laboratory Tests 05/31/20 05/31/20 05/31/20 08:30 19:41 22:00 WBC RBC Hgb Hct MCV MCH MCHC RDW Plt Count MPV Sodium Potassium Chloride Carbon Dioxide Anion Gap BUN Creatinine Est GFR (CKD-EPI)AfAm Est GFR (CKD-EPI)NonAf Random Glucose Calcium Total Bilirubin AST ALT Alkaline Phosphatase Total Protein Albumin POC Urine HCG, Qual Negative Syphilis Serology Non-reactive COVID-19 (TD) Not detected 06/01/20 06/01/20 08:30 08:30 WBC 5.8 RBC 3.78 Hgb 10.7 Hct 32.6 MCV 86.3 MCH 28.4 MCHC 32.9 RDW 15.7 H Plt Count 296 MPV 8.7 Sodium 146 H Potassium 3.9 Chloride 113 H Carbon Dioxide 26 Anion Gap 6 L BUN 8.9 Creatinine 0.7 Est GFR (CKD-EPI)AfAm 126.49 Est GFR (CKD-EPI)NonAf 109.14 Random Glucose 80 Calcium 8.8 Total Bilirubin 0.5 AST 20 ALT 22 Alkaline Phosphatase 67 Total Protein 6.1 L Albumin 3.3 L POC Urine HCG, Qual Syphilis Serology COVID-19 (TD) lab noted Assessment: 06/02/20 09:20 opiate withdrawal Plan: methadone regiment
[2020-06-02] MEDS: NICOTINE 7 MG/24 HOURS TOPICAL PATCH TD SCH (09:49)
[2020-06-02] MEDS: ACETAMINOPHEN 325 MG TABLET (FP) PO PRN (09:49)
[2020-06-02] MEDS: BACITRACIN 0.9 GM PACKET TP SCH ×2 (09:49→22:11)
[2020-06-02] MEDS: PRENATAL VITAMINS W/ FOLIC ACID TABLET (FP) PO SCH (09:49)
[2020-06-02] MEDS ORDERED: METHADONE HCL 10 MG TABLET (FOR DETOX USE ONLY) PO ONE (10:00)
[2020-06-02] MEDS ORDERED: ONDANSETRON *ODT* 4 MG TABLET SL ONE (12:00)
[2020-06-02] MEDS: THIAMINE HCL 100 MG TABLET (FP) PO SCH (22:11)
[2020-06-02] MEDS: hydrOXYzine PAMOATE 25 MG CAPSULE (FP) PO PRN (22:12)
[2020-06-02] MEDS: MELATONIN 5 MG TABLETS PO PRN (22:12)
[2020-06-03] MEDS ORDERED: METHADONE HCL 5 MG TABLET (FOR DETOX USE ONLY) ONE (08:52)
[2020-06-03] MEDS ORDERED: METHADONE HCL 10 MG TABLET (FOR DETOX USE ONLY) ONE (08:52)
[2020-06-03] MEDS: NICOTINE 7 MG/24 HOURS TOPICAL PATCH TD SCH (09:42)
[2020-06-03] MEDS: BACITRACIN 0.9 GM PACKET TP SCH (09:42)
[2020-06-03] MEDS: PRENATAL VITAMINS W/ FOLIC ACID TABLET (FP) PO SCH (09:43)
[2020-06-03] MEDS: ACETAMINOPHEN 325 MG TABLET (FP) PO PRN (09:44)
[2020-06-03 09:47] VITALS: BP 107/76; PULSE 91; TEMP 97.3
[2020-06-03] MEDS ORDERED: METHADONE (DETOX) 10 MG, METHADONE (DETOX) 5 MG PO ONE (10:00)
--- NOTE | 2020-06-03 10:18 | PN ---
BHS COWS - Scale Resting Pulse: 1= [place] 81-100 Sweatin= Beads of Sweat on Face Restless Observation: 1= Difficult to Sit Still Pupil Size: 0= Normal to Room Light Bone or Joint Aches: 0= None Runny Nose/ Eye Tearin= None GI Upset > 30mins: 0= None Tremor Observation of Outstretched Hands: 0= None Yawning Observation: 1= 1-2x During Session Anxiety or Irritability: 1=Feels Anxious/Irritable Goose Flesh Skin: 0=Smooth Skin COWS Score: 7 BHS Progress Note (SOAP) Subjective: c/o sweats, anxiety, and irritability. Objective: 06/03/20 10:17 Vital Signs 06/03/20 06/03/20 07:09 09:11 Temperature 97.7 F 97.3 F L Pulse Rate 64 91 H Respiratory 16 18 Rate Blood Pressure 98/65 107/76 O2 Sat by Pulse 99 Oximetry (%) Laboratory Last Values WBC 5.8 K/mm3 (4.0-10.0) 06/01/20 08:30 RBC 3.78 M/mm3 (3.60-5.2) 06/01/20 08:30 Hgb 10.7 GM/dL (10.7-15.3) 06/01/20 08:30 Hct 32.6 % (32.4-45.2) 06/01/20 08:30 MCV 86.3 fl (80-96) 06/01/20 08:30 MCH 28.4 pg (25.7-33.7) 06/01/20 08:30 MCHC 32.9 g/dl (32.0-36.0) 06/01/20 08:30 RDW 15.7 % (11.6-15.6) H 06/01/20 08:30 Plt Count 296 K/MM3 (134-434) 06/01/20 08:30 MPV 8.7 fl (7.5-11.1) 06/01/20 08:30 Sodium 146 mmol/L (136-145) H 06/01/20 08:30 Potassium 3.9 mmol/L (3.5-5.1) 06/01/20 08:30 Chloride 113 mmol/L (98-107) H 06/01/20 08:30 Carbon Dioxide 26 mmol/L (21-32) 06/01/20 08:30 Anion Gap 6 MMOL/L (8-16) L 06/01/20 08:30 BUN 8.9 mg/dL (7-18) 06/01/20 08:30 Creatinine 0.7 mg/dL (0.55-1.3) 06/01/20 08:30 Est GFR (CKD-EPI)AfAm 126.49 06/01/20 08:30 Est GFR (CKD-EPI)NonAf 109.14 06/01/20 08:30 Random Glucose 80 mg/dL (74-106) 06/01/20 08:30 Calcium 8.8 mg/dL (8.5-10.1) 06/01/20 08:30 Total Bilirubin 0.5 mg/dL (0.2-1) 06/01/20 08:30 AST 20 U/L (15-37) 06/01/20 08:30 ALT 22 U/L (13-61) 06/01/20 08:30 Alkaline Phosphatase 67 U/L (45-117) 06/01/20 08:30 Total Protein 6.1 g/dl (6.4-8.2) L 06/01/20 08:30 Albumin 3.3 g/dl (3.4-5.0) L 06/01/20 08:30 POC Urine HCG, Qual Negative 05/31/20 19:41 Syphilis Serology Non-reactive (NONREACTIVE) 05/31/20 08:30 COVID-19 (TD) Not detected (Not Detected) 05/31/20 22:00 Labs noted. Assessment: 06/03/20 10:17 AOX3, in no acute respiratory distress. Full ROM, ambulating in the unit. Withdrawal symptoms. Plan: continue detox.
--- NOTE | 2020-06-03 12:14 | DS ---
[facility] Detox Discharge Summary Admission Date: 05/31/20 Discharge Date: 06/03/20 (Pt left AMA) - History Present History: Cocaine Dependence, Opioid Dependence Additional Comments: Pt left AMA. Pt did not complete the detox protocol. Pt states, "I have to go take care of stuff". An attempt to let pt stay and complete the detox protocol failed. Pt is encouraged to follow-up with an outpatient CD program and also to follow-up with her pmd which she verbalized understanding. Pt is AOX3, in no acute respiratory distress, Full ROM, and ambulatory. Pertinent Past History: h/o heroin and cocaine use disorder. - Physical Exam Results Vital Signs: Vital Signs Temperature 97.3 F L 06/03/20 09:11 Pulse Rate 91 H 06/03/20 09:11 Respiratory Rate 18 06/03/20 09:11 Blood Pressure 107/76 06/03/20 09:11 O2 Sat by Pulse Oximetry (%) 99 06/03/20 07:09 Vital Signs 06/03/20 06/03/20 07:09 09:11 Temperature 97.7 F 97.3 F L Pulse Rate 64 91 H Respiratory 16 18 Rate Blood Pressure 98/65 107/76 O2 Sat by Pulse 99 Oximetry (%) Laboratory Last Values WBC 5.8 K/mm3 (4.0-10.0) 06/01/20 08:30 RBC 3.78 M/mm3 (3.60-5.2) 06/01/20 08:30 Hgb 10.7 GM/dL (10.7-15.3) 06/01/20 08:30 Hct 32.6 % (32.4-45.2) 06/01/20 08:30 MCV 86.3 fl (80-96) 06/01/20 08:30 MCH 28.4 pg (25.7-33.7) 06/01/20 08:30 MCHC 32.9 g/dl (32.0-36.0) 06/01/20 08:30 RDW 15.7 % (11.6-15.6) H 06/01/20 08:30 Plt Count 296 K/MM3 (134-434) 06/01/20 08:30 MPV 8.7 fl (7.5-11.1) 06/01/20 08:30 Sodium 146 mmol/L (136-145) H 06/01/20 08:30 Potassium 3.9 mmol/L (3.5-5.1) 06/01/20 08:30 Chloride 113 mmol/L (98-107) H 06/01/20 08:30 Carbon Dioxide 26 mmol/L (21-32) 06/01/20 08:30 Anion Gap 6 MMOL/L (8-16) L 06/01/20 08:30 BUN 8.9 mg/dL (7-18) 06/01/20 08:30 Creatinine 0.7 mg/dL (0.55-1.3) 06/01/20 08:30 Est GFR (CKD-EPI)AfAm 126.49 06/01/20 08:30 Est GFR (CKD-EPI)NonAf 109.14 06/01/20 08:30 Random Glucose 80 mg/dL (74-106) 06/01/20 08:30 Calcium 8.8 mg/dL (8.5-10.1) 06/01/20 08:30 Total Bilirubin 0.5 mg/dL (0.2-1) 06/01/20 08:30 AST 20 U/L (15-37) 06/01/20 08:30 ALT 22 U/L (13-61) 06/01/20 08:30 Alkaline Phosphatase 67 U/L (45-117) 06/01/20 08:30 Total Protein 6.1 g/dl (6.4-8.2) L 06/01/20 08:30 Albumin 3.3 g/dl (3.4-5.0) L 06/01/20 08:30 POC Urine HCG, Qual Negative 05/31/20 19:41 Syphilis Serology Non-reactive (NONREACTIVE) 05/31/20 08:30 COVID-19 (TD) Not detected (Not Detected) 05/31/20 22:00 Labs noted. Pertinent Admission Physical Exam Findings: withdrawal symptoms. - Treatment Hospital Course: Detox Protocol Followed - Medication Discharge Medications: Ambulatory Orders Sertraline HCl [Zoloft -] 50 mg PO DAILY 06/18/19 Alprazolam [Xanax] 2 mg PO TID 01/01/20 Zolpidem Tartrate [Ambien] 10 mg PO DAILY 01/01/20 Naloxone HCl [Narcan] 4 mg NS ASDIR PRN #1 spray 08/20/20 - Diagnosis (1) Opioid dependence with withdrawal Current Visit: No Status: Acute (2) Cocaine dependence, uncomplicated Current Visit: Yes Status: Chronic (3) Hepatitis C Current Visit: No Status: Chronic Qualifiers: Viral hepatitis chronicity: unspecified (4) IVDU (intravenous drug user) Current Visit: No Status: Chronic (5) Nicotine dependence Current Visit: Yes Status: Chronic Qualifiers: Nicotine product type: cigarettes - AMA Did Patient Leave Against Medical Advice: Yes
[2020-06-04] MEDS ORDERED: METHADONE HCL 10 MG TABLET (FOR DETOX USE ONLY) PO ONE (10:00)
[2020-06-05] MEDS ORDERED: METHADONE HCL 5 MG TABLET (FOR DETOX USE ONLY) PO ONE (06:00)
== END 2020-06-03 11:53 | disposition left against medical advice (07) | DRG 770 ==
LOC: YASAS 19:23 → Y3N 21:34
PROVIDERS: ADMIT Allergy & Immunology; ATTEND Allergy & Immunology
PROC: HZ2ZZZZ Detoxification Services for Substance Abuse Treatment (ICD-10-PCS; principal; 2020-05-31)
DX: F11.23 Opioid dependence with withdrawal (principal); F10.20 Alcohol dependence, uncomplicated; F14.20 Cocaine dependence, uncomplicated; F17.210 Nicotine dependence, cigarettes, uncomplicated; B18.2 Chronic viral hepatitis C; R63.4 Abnormal weight loss; Z68.1 Body mass index [BMI] 19.9 or less, adult
CPT/HCPCS: 36415; 80053; 81025; 85027; 86780; Q0162; U0003

== ENCOUNTER 2020-11-24 21:24 | Inpatient (IN) | payer OTHER ==
[2020-11-24 22:01] VITALS: BMI 17.2
[2020-11-24] MEDS ORDERED: BISMUTH SUBSALICYLATE 524 MG/30 ML UD PO PRN (22:43)
[2020-11-24] MEDS ORDERED: MAGNESIUM HYDROX 2400MG/30ML ORAL SUSPENSION 30 ML CUP PO PRN (22:43)
[2020-11-24] MEDS ORDERED: cloNIDine HCL 0.1 MG TABLET PO PRN (22:43)
[2020-11-24] MEDS ORDERED: ACETAMINOPHEN 325 MG TABLET (FP) PO PRN ×2 (22:43)
[2020-11-24] MEDS ORDERED: MAG HYDROX/AL HYDROX/SIMETH 30 ML UNIT-DOSE CUP PO PRN (22:43)
[2020-11-24] MEDS ORDERED: METHADONE HCL 10 MG TABLET (FOR DETOX USE ONLY) PO ONE (22:43)
[2020-11-24] MEDS ORDERED: hydrOXYzine PAMOATE 25 MG CAPSULE (FP) PO PRN (22:43)
[2020-11-24] MEDS ORDERED: IBUPROFEN 400 MG TABLET (FP) PO PRN (22:43)
[2020-11-24] MEDS ORDERED: NICOTINE POLACRILEX 2 MG GUM BUC PRN (22:43)
[2020-11-24] MEDS ORDERED: ONDANSETRON *ODT* 4 MG TABLET SL PRN (22:43)
[2020-11-24] MEDS ORDERED: METHOCARBAMOL 500 MG TABLET PO PRN (22:43)
[2020-11-24] MEDS ORDERED: MAGNESIUM CITRATE 300 ML BOTTLE PO PRN (22:43)
[2020-11-24] MEDS ORDERED: chlordiazePOXIDE HCL 25 MG CAPSULE PO PRN (22:43)
[2020-11-24] MEDS ORDERED: MENTHOL/PHENOL 1 EACH UD MM PRN (22:43)
[2020-11-25] MEDS: chlordiazePOXIDE HCL 25 MG CAPSULE PO SCH ×5 (00:31→22:26)
[2020-11-25] MEDS ORDERED: METHADONE HCL 10 MG TABLET (FOR DETOX USE ONLY) ONE (09:20)
[2020-11-25] MEDS ORDERED: METHADONE HCL 5 MG TABLET (FOR DETOX USE ONLY) ONE (09:21)
[2020-11-25] MEDS ORDERED: METHADONE (DETOX) 20 MG, METHADONE (DETOX) 5 MG PO ONE (10:00)
[2020-11-25] MEDS: PRENATAL VITAMINS W/ FOLIC ACID TABLET (FP) PO SCH (10:58)
[2020-11-25] MEDS: NICOTINE 14 MG/24 HOURS TOPICAL PATCH TD SCH (11:00)
[2020-11-25] MEDS: DOXYCYCLINE HYCLATE 100 MG CAPSULE PO SCH ×2 (11:02→21:29)
[2020-11-25] MEDS: THIAMINE HCL 100 MG TABLET (FP) PO SCH (22:26)
[2020-11-25] MEDS: MELATONIN 5 MG TABLETS PO SCH (22:26)
[2020-11-26] MEDS: chlordiazePOXIDE HCL 25 MG CAPSULE PO SCH ×4 (07:23→22:13)
[2020-11-26] MEDS ORDERED: METHADONE HCL 10 MG TABLET (FOR DETOX USE ONLY) PO ONE (10:00)
[2020-11-26] MEDS: PRENATAL VITAMINS W/ FOLIC ACID TABLET (FP) PO SCH (10:24)
[2020-11-26] MEDS: NICOTINE 14 MG/24 HOURS TOPICAL PATCH TD SCH (10:25)
[2020-11-26] MEDS: DOXYCYCLINE HYCLATE 100 MG CAPSULE PO SCH ×2 (10:25→17:37)
[2020-11-26] MEDS: MELATONIN 5 MG TABLETS PO SCH (22:13)
[2020-11-26] MEDS: THIAMINE HCL 100 MG TABLET (FP) PO SCH (22:14)
[2020-11-27] MEDS ORDERED: chlordiazePOXIDE HCL 10 MG CAPSULE PO PRN
[2020-11-27] MEDS: chlordiazePOXIDE HCL 10 MG CAPSULE PO SCH ×2 (06:56→10:33)
[2020-11-27] MEDS ORDERED: METHADONE HCL 5 MG TABLET (FOR DETOX USE ONLY) ONE (09:04)
[2020-11-27] MEDS ORDERED: METHADONE HCL 10 MG TABLET (FOR DETOX USE ONLY) ONE (09:04)
[2020-11-27] MEDS ORDERED: METHADONE (DETOX) 10 MG, METHADONE (DETOX) 5 MG PO ONE (10:00)
[2020-11-27] MEDS: NICOTINE 14 MG/24 HOURS TOPICAL PATCH TD SCH (10:31)
[2020-11-27] MEDS: PRENATAL VITAMINS W/ FOLIC ACID TABLET (FP) PO SCH (10:31)
[2020-11-27] MEDS: DOXYCYCLINE HYCLATE 100 MG CAPSULE PO SCH (10:31)
[2020-11-27 12:50] LABS: POTASSIUM 4.1 mmol/L (3.5-5.1)
[2020-11-27 12:54] LABS: BASO % 0.9 % (0-2.0); EOS % 5.7 % (0-4.5); HEMATOCRIT 37.7 % (32.4-45.2); HEMOGLOBIN 12.4 GM/dL (10.7-15.3); LYMPH % 27.2 % (8-40); MCH 26.7 pg (25.7-33.7); MCHC 32.9 g/dl (32.0-36.0); MEAN CELL VOLUME 81.3 fl (80-96); MONO % 10.2 % (3.8-10.2); PLATELET COUNT 551 K/MM3 (134-434); RBC 4.64 M/mm3 (3.60-5.2); RDW 14.8 % (11.6-15.6); WHITE BLOOD COUNT 7.8 K/mm3 (4.0-10.0)
[2020-11-27 12:56] LABS: CALCIUM 9.7 mg/dL (8.5-10.1)
[2020-11-27 12:57] LABS: ALBUMIN 3.7 g/dl (3.4-5.0); BLOOD UREA NITROGEN 17.5 mg/dL (7-18)
[2020-11-27 13:00] LABS: CREATININE 0.8 mg/dL (0.55-1.3)
[2020-11-27 13:01] LABS: BILIRUBIN,TOTAL 0.7 mg/dL (0.2-1); TOT PROT 7.9 g/dl (6.4-8.2)
[2020-11-27 13:38] VITALS: BP 125/80; PULSE 116; TEMP 97.7
[2020-11-28] MEDS ORDERED: chlordiazePOXIDE HCL 10 MG CAPSULE PO SCH (05:00)
[2020-11-28] MEDS ORDERED: METHADONE HCL 10 MG TABLET (FOR DETOX USE ONLY) PO ONE (10:00)
[2020-11-29] MEDS ORDERED: chlordiazePOXIDE HCL 10 MG CAPSULE PO ONE (05:00)
[2020-11-29] MEDS ORDERED: METHADONE HCL 5 MG TABLET (FOR DETOX USE ONLY) PO ONE (06:00)
== END 2020-11-27 13:13 | disposition left against medical advice (07) | DRG 770 ==
LOC: YASAS 21:24 → Y6N 23:07 → Y3N 23:58
PROVIDERS: ADMIT Allergy & Immunology; ATTEND Allergy & Immunology
PROC: HZ2ZZZZ Detoxification Services for Substance Abuse Treatment (ICD-10-PCS; principal; 2020-11-24)
DX: F11.23 Opioid dependence with withdrawal (principal); F10.230 Alcohol dependence with withdrawal, uncomplicated; F14.20 Cocaine dependence, uncomplicated; F17.210 Nicotine dependence, cigarettes, uncomplicated; F19.24 Other psychoactive substance dependence with psychoactive substance-induced mood disorder; F32.9 Major depressive disorder, single episode, unspecified; F41.9 Anxiety disorder, unspecified; L02.415 Cutaneous abscess of right lower limb; B18.2 Chronic viral hepatitis C; Z56.0 Unemployment, unspecified; Z59.0 Homelessness
CPT/HCPCS: 36415; 80053; 85025; C9803; U0003